=== PATIENT | female | born 1955 | race Caucasian/White ===

== ENCOUNTER → 2018-02-16 09:54 | Outpatient (CLI) | payer MEDICARE, SELFPAY, OTHER ==
[2018-02-16 11:59] LABS: Hemoglobin 13.4 g/dL (12.0-16.0); Mean Corpuscular HGB Conc 34.4 % (30-36); Mean Corpuscular Hemoglobin 31.4 PG (26-34); Mean Corpuscular Volume 91.4 fL (80-100); Platelet Count 278 X10^3/uL (150-400); Red Blood Cell Count 4.27 X10^6/uL (4.0-5.2); Red Cell Distribution Width 13.6 % (11.6-14.8); White Blood Cell Count 7.7 X10^3/uL (4.5-11.0)
[2018-02-16 12:19] LABS: BUN Creatinine Ratio 22.9 (6-22); Blood Urea Nitrogen 16 mg/dL (7-17); Calcium 9.5 mg/dL (8.4-10.2); Carbon Dioxide 27 mmol/L (22-32); Chloride 97 mmol/L (98-107); Estimated Glomerular Filt Rate > 60.0 mL/min (>60); Glucose 91 mg/dL (80-110); HEMOLYSIS < 15 (0-50); Potassium 4.4 mmol/L (3.4-5.1); Sodium 137 mmol/L (137-145)
== END ==
PROVIDERS: PCP Physician Assistant; Visit Provider Orthopaedic Surgery Orthopaedic Surgery of the Spine
DX: Z01.818 Encounter for other preprocedural examination (principal)
CPT/HCPCS: 36415; 80048; 85027

== ENCOUNTER 2018-03-03 06:32 | Inpatient (IN) | payer MEDICARE, OTHER, SELFPAY ==
[2018-03-03] VITALS (16 sets, daily range): BP systolic 117–171; BP diastolic 72–97; PULSE 76–103; RESP 9–24; TEMP 36–37.1; O2SAT 93–98; BMI 22.5
[2018-03-03] MEDS: LACTATED RINGERS 1,000 ML 42 ML IV ×3 (07:54→11:37)
[2018-03-03] MEDS: MIDAZOLAM 2 MG/2 ML VIAL IV (07:57)
--- NOTE | 2018-03-03 08:02 | PM.PREOP ---
Pre-operative Note Interval Note Pre-op Check: History & Physical Reviewed by Physician, Exam Performed and History & Physical exam performed today
[2018-03-03] MEDS: CEFAZOLIN 2 GM/100 ML FROZ.PIGGY IV ×3 (08:06→23:44)
--- NOTE | 2018-03-03 08:45 | SUR.OPER ---
Right lateral on padded OR table. Head on pillow, gel axillary roll, pillow to support left arm. Legs flexed, pillows between legs, gel pad under down leg and ankle. Multiple passes of 3 inch cloth tape across shoulder, hip, upper and lower legs to secure patient on OR table.
[2018-03-03] MEDS: BUPIVACAINE LIPOSOME 266 MG/20 ML VIAL INJ (09:05)
[2018-03-03] MEDS: BUPIVACAINE 0.25% W/ EPI 50 ML VIAL INJ (09:05)
--- NOTE | 2018-03-03 09:58 | SUR.OPER ---
Prone on spine table, head in foam head support, padded chest and pelvic supports, gel pad at knees, lower legs supported by pillows; nipples, genitalia and toes free of pressure, arms secured on foam padded arm boards at <90 degrees abduction. Tape over blanket at thigh secured to table.
--- NOTE | 2018-03-03 10:00 | SUR.OPER ---
PATIENT WAS POSITIONED ACCORDING TO LAST ENTRY PRONE ON THE SPINE TABLE , OTHER ENTRY WAS CLICKED ON IN ERROR AND IS INCORRECT. STONEY DUONG
[2018-03-03] MEDS: LORazepam 2 MG/ML SYRINGE 0.5 MG IV ×2 (11:45→11:58)
[2018-03-03] MEDS: fentaNYL 100 MCG/2 ML INJ 25 MCG IV ×2 (11:47→11:53)
[2018-03-03] MEDS: hydrOXYzine 50 MG/ML INJ 25 MG IM (11:50)
--- NOTE | 2018-03-03 11:50 | P.OP_ITS ---
Operative Date/Time/Diagnoses - Date of procedure: 03/03/18 Time of procedure: 08:19 Pre-op diagnosis: 1. L4-5, L5-S1 spondylolisthesis 2. L4-5, L5-S1 spinal stenosis 3. L4-5, L5-S1 spondylosis with radiculopathy Post-op diagnosis: same Procedure & Clinicians Procedure: 1. L4-5, L5-S1 Postero-lateral and posterior interbody fusion 2. L4-5, L5-S1 interbody cage placement. 3. L4-5, L5-S1 decompressive laminectomy with bilateral facetecomies 4. L4-5, L5-S1 Posterior segmental instrumentation 5. Preston of bone marrow from iliac crest 6. Utilization of microsurgical technique and operating microscope Same procedure as scheduled: Yes Indications: Patient has been having chronic back pain and worsening lumbar radiculopathy. Patient failed multiple conservative management with worsening pain weakness and numbness in her lower extremity. Patient has been having difficulty performing activity of daily living. After discussing risks benefits of treatment options, patient elected proceed with surgery. Surgeon: Talha Begum Electric Razor Assembler: Sophia Galloway Click Yes if Unassisted: No Anesthesia Type: General Operative Notes Closure Type: primary Specimen(s): none sent Implants & Drains: Globus Revolve screws and Caliber cage Applied: catheter Estimated Blood Loss (mL): 100 Blood products transfused: none Procedure in detail: Patient was seen in the preoperative area. Risks and benefits of the surgery was discussed with the patient. Informed consent was obtained from the patient and placed in the chart. Surgical site was marked. Patient was taken to the operative room. General anesthesia was administered. Prophylactic antibiotic was given to the patient less than 30 min before the incision was made. Patient was placed into a prone position on the Jason table. Patient's back was then prepped and draped in the sterile fashion. Time- out was performed at this time. Using AP and lateral C-arm imaging the interval between L4-S1 was identified and marked on patient's back. A 2 inch incision 2 in from midline was made on the left side first. The fascia was incised in line with skin incision. Globus MARS retractors was placed inside the incision and docked onto the L4 and L5 lamina. Using microsurgical technique and operating microscope, a L4 and L5 laminectomy and L4-5 L5-S1 facetectomy was performed using a Kerrison rongeur. The disc space at L4-5, L5-S1 was identified. And a total diskectomy was performed at L4-5, L5-S1 level. The endplates were decorticated using a rasp and shaver. The total diskectomy and decortication was performed at L4-5, L5- S1 level in order to to accomplish a L4-5, L5-S1 fusion. The local bone from the laminectomy and facetectomy was saved for local bone grafting. After the total diskectomy and decortication was completed, Globus viacell bone graft material was combined with local bone that was harvested earlier. At this time , a separate skin is incision was made over the iliac crest. A Jamshidi needle was inserted into the iliac crest through a separate skin incision. 5 cc of bone marrow aspiration was obtained through the separate skin incision using a Jamshidi needle from the iliac crest. The bone marrow aspiration was combined with local bone and the via cell bone grafting material. The bone grafting material was placed into the L4-5, L5-S1 interbody space along with two cages, one expandable cage at each level. The cages were expanded to their maximum height using the torque limiting screwdriver. At this time a mirror image incision was made on the right side. The fascia was incised in line with the skin incision. Globus MARS retractor was inserted and docked onto the L4-5, L5-S1 posterolateral gutter. Using the power drill, posterior-lateral decortication was performed at L4-5, L5-S1 level until bleeding cortical bone was identified. The remaining bone grafting material was placed into the L4-5 L5-S1 posterior lateral gutter he order to accomplish posterolateral fusion at the L4-5 L5-S1 levels. Using the double C-arm technique, pedicle screws were placed into the L4, L5, S1 pedicles bilaterally. This was done by placing the Jamshidi needle into the pedicles, then placing the guidewires over the Jamshidi needle, and finally placing the cannulated screws over the guidewires bilaterally. After the pedicle screws were placed, 2 titanium rods was locked into the heads of the pedicle screws using locking caps and torque limiting screwdriver. Total 6 pedicles screws were placed. After all the hardware was placed, and confirmed with AP and lateral C-arm imaging, the wound was then irrigated with sterile normal saline and packed with Ray-Linh gauze for 3 min to accomplish hemostasis. After the gauze was removed the deep fascia was closed with #1 Vicryl suture. The subcutaneous layer was closed with 2-0 Vicryl. The skin was closed with skin lorenzo. Patient tolerated the procedure well. There were no complications. Complications: none Condition: stable Disposition: PACU Plan for aftercare: Admit to inpatient hospital
[2018-03-03] MEDS: fentaNYL 100 MCG/2 ML INJ 50 MCG IV (11:57)
--- NOTE | 2018-03-03 12:16 | DI.RAD.S_ITS ---
PROCEDURE: XR LUMBAR SPINE 2-3V INDICATIONS: L4-5, L5-S1 TLIF TECHNIQUE: 2 views of the lumbar spine were acquired. COMPARISON: [facility], , L-SPINE WITHOUT CONTRAST, 10/20/2017, 8:23. FINDINGS: Bones: Postsurgical changes compatible with L4-L5 and L5-S1 transforaminal lumbar interbody fusion noted. Bilateral L3, L4 and L5 pedicle screws and posterior fusion rods as well as L4-L5 and L5-S1 disc spacers noted. The hardware is intact. There is normal bony alignment. No vertebral body compression fractures. No suspicious bony lesions. Soft tissues: Overlying bowel gas pattern is normal. No suspicious soft tissue calcifications. IMPRESSION: Expected postsurgical change for L4-S1TLIF. Dictated by: Antonietta Osorio MD, PhD on 03/03/2018 at 12:50 Approved by: Antonietta Osorio MD, PhD on 03/03/2018 at 12:52
[2018-03-03] MEDS: MORPHINE 2 MG/ML INJ IV (14:16)
[2018-03-03] MEDS: SODIUM CHLORIDE 0.9% 1,000 ML 100 ML IV (14:17)
[2018-03-03] MEDS: OXYCODONE IR 5 MG TABLET 10 MG PO ×4 (14:31→23:44)
[2018-03-03] MEDS: hydrOXYzine pamoate 25 MG CAPSULE PO ×2 (17:20→21:09)
[2018-03-03] MEDS: OXYCODONE ER 10 MG TAB PO (21:03)
[2018-03-03] MEDS: CITALOPRAM 20 MG TABLET 40 MG PO (21:06)
[2018-03-03] MEDS: SENNOSIDES 8.6 MG TABLET 17.2 MG PO (21:07)
[2018-03-03] MEDS: DOCUSATE 100 MG CAPSULE PO (21:07)
[2018-03-03] MEDS: CALCIUM CARBONATE 600 MG TABLET PO (21:07)
[2018-03-04] VITALS (15 sets, daily range): BP systolic 119–156; BP diastolic 59–88; PULSE 80–86; RESP 16; TEMP 36.8–38.6; O2SAT 93–98
[2018-03-04] MEDS: SODIUM CHLORIDE 0.9% 1,000 ML 100 ML IV (00:52)
[2018-03-04] MEDS: hydrOXYzine pamoate 25 MG CAPSULE PO ×4 (00:52→18:55)
--- NOTE | 2018-03-04 01:03 | PC.NURSE ---
Addendum entered by Shayy Hall R.N. 03/04/18 06:56: Pain now 6-7 /10 , she states that Morphine was helpful in reducing major pain, still hurts when she moves. Slept for past 45 minutes. Original Note: Addendum entered by Shayy Hall R.N. 03/04/18 05:57: Medicated with 10 mg percolone at 0600 for pain 7/10, continues i side lying position. Excellent PO intake, IV fluids stopped, saline locked PIV in left forearm. Overall, calmer, musculoskeletal tension has declined, no shakiness and she appears to be falling asleep. Original Note: Addendum entered by Shayy Hall R.N. 03/04/18 05:28: Medicated with 10 mg percolone at 0300, pain 7-9/10 w/ spasms, she prefers to keep legs semi flexed and supported by 1 pillow for maximum comfort. At 0530, pain out of control after she used bed guzman, onset of muscle tension in legs, shaking, pain rapidly up to 10/10; given morphine 2 mg IV followed by vistaril 25 mg and encouraged into a right side lying position. pain abated to 7-8/10 with Morphine. Original Note: Kerry was experiencing 10/10 pain at 2330, medicated with percolone 10 mg at 2340 w/ additional vistaril 25 mg at 0050. She was able to describe some some relief, tolerating PO fluids plus solids, moving self to reposition in bed, and using bed guzman. She expresses good understanding about outcomes and has extensive knowledge about pain medication, having depended on oxycodone for several years. SCD's i place, + CMS in lower extremities, she is eager to get out of bed and begin work with PT.
[2018-03-04] MEDS: OXYCODONE IR 5 MG TABLET 10 MG PO ×2 (02:52→05:47)
[2018-03-04] MEDS: MORPHINE 2 MG/ML INJ IV ×5 (05:18→21:58)
[2018-03-04 05:24] LABS: Hematocrit 35.7 % (36-46); Hemoglobin 12.1 g/dL (12.0-16.0)
[2018-03-04] MEDS: ACETAMINOPHEN 325 MG TABLET 650 MG PO ×3 (08:14→18:55)
[2018-03-04] MEDS: OXYCODONE ER 10 MG TAB PO ×2 (09:19→21:58)
[2018-03-04] MEDS: CALCIUM CARBONATE 600 MG TABLET PO ×2 (09:22→21:52)
[2018-03-04] MEDS: CYANOCOBALAMIN (VITAMIN B-12) 500 MCG TABLET PO (09:23)
[2018-03-04] MEDS: ESTRADIOL 1 MG TABLET PO (09:23)
[2018-03-04] MEDS: CHOLECALCIFEROL (VITAMIN D3) 1,000 UNIT TABLET 1000 UNIT PO (09:23)
[2018-03-04] MEDS: DOCUSATE 100 MG CAPSULE PO ×2 (09:23→21:52)
[2018-03-04] MEDS: LORATADINE 10 MG TABLET PO (09:24)
[2018-03-04] MEDS: MULTIVITAMIN 1 TABLET 1 TAB PO (09:24)
[2018-03-04] MEDS: OXYBUTYNIN 5 MG TABLET PO (09:24)
--- NOTE | 2018-03-04 10:07 | PT.IIE ---
Current Diagnoses Spondylolisthesis, lumbar region (03/03/18) Spondylolisthesis, lumbosacral region (03/03/18) Other spondylosis with radiculopathy, lumbar region (03/03/18) Spinal stenosis, lumbar region without neurogenic claudication (03/03/18) Surgery Performed Operation Date: 03/03/18 07:45 Actual Procedures p L4-5, L5-S1 Translaminar Interbody Fusion w/posterior instrumentation - Talha Begum MD Physical Therapy Inpatient Evaluation/Re-Eval M1 PT/OT-IP Prior Functional Status Start: 03/04/18 09:56 Freq: Status: Active Protocol: Document 03/04/18 09:56 [facility] (Rec: 03/04/18 10:07 [facility] [id number]) Medical Review Prior Functional Status Medical History Reviewed Yes Diet/Fluid Consistency Regular Mobility and Gait Modified indep. with occasional SPC and/or 4WW use. Activities of Daily Living and IADL's Indep. ADLs. Social History Household Members spouse Living Arrangements House Number of Floors (Floors) Two Floors Number of Stairs To Enter/Railing? Ramped entry, does not need access to second level at home . Home Environment High Toilet Walk in Shower Tub/Shower Ramp Home Equipment Four Wheel Walker Straight Cane Shower Seat without Backrest Hand Held Shower Grab Bars In Shower M2 PT-IP Current Condition Start: 03/04/18 09:56 Freq: Status: Active Protocol: Document 03/04/18 09:56 [facility] (Rec: 03/04/18 10:07 [facility] [id number]) Physical Therapy Current Condition Current Condition Evaluation Date 03/04/18 Treatment Diagnosis L4-5, L5-S1 TLIF 03/03/18, impaired mobility Precautions Lumbar Precautions Log Roll No Twisting Limit Bending Lifting Restriction of 10 lbs Gait Belt above Incisional Area M3 PT-IP Subjective Start: 03/04/18 09:56 Freq: Status: Active Protocol: Document 03/04/18 09:56 [facility] (Rec: 03/04/18 10:07 [facility] [id number]) Subjective Physical Therapy Visit Type Type Initial Evaluation Visit Start Time 09:30 Visit Stop Time 09:56 Total Visit Minutes 26 Notes Family in room during session. Number of ORGAN T[employer]ER [employer] Visits 0 Physical Therapy Visit Comments Patient/Caregiver Goals go home. Therapy Pain Assessment Pain When Pain Assessed At Rest Pain Present Pain Present Pain Reported Location lower back Intensity 2 Scale Used Numeric (1 - 10) Description Aching Pain Management Techniques Modification of Treatment Re-positioning Timing of Activity with Medications M4 PT-IP Mobility and Gait Start: 03/04/18 09:56 Freq: Status: Active Protocol: Document 03/04/18 09:56 [facility] (Rec: 03/04/18 10:07 [facility] [id number]) PT-Bed Mobility Assessment Rolling Type of Rolling Log Rolling Level of Assist Standby Assistance Supine to Sit Supine to Sit Standby Assistance Scooting Scooting to Edge of Bed Standby Assistance PT-Transfer Assessment Sit to and From Stand Sit to and from Stand Standby Assistance Use of Upper Extremities Equipment Transfer Assistive Device Gait Belt Front Wheeled Walker Transfers Transfer Destination Chair Transfer Technique Stand Step Pivot Transfer Ability Level of Assist Standby Assistance Comments Mobility Comments VC for no twisting, leg position for initiating stand to sit. Gait Assessment Gait Gait Assistance Required: Standby Assistance Distance (Feet) (feet) 50 Assistive Devices Assistive Device Gait Belt Front Wheeled Walker Gait Deviations General Gait Pattern Antalgic Factors Limiting Gait Function Factors Limiting Gait Function Decreased Activity Tolerance Decreased Strength Pain Comments Gait Comments Step-through gait patter, fatigued final 15 ft of gait, decreasing step length as fatiguing. PT-Balance Assessment Sitting Balance and Reactions Static Sitting Balance Ability Good Dynamic Sitting Balance Ability Good Standing Balance and Reactions Static Standing Balance Ability Good Dynamic Standing Balance Ability Fair Device Used FWW M5 PT-IP Objective Assessments Start: 03/04/18 09:56 Freq: Status: Active Protocol: Document 03/04/18 09:56 [facility] (Rec: 03/04/18 10:07 [facility] [id number]) Orientation Orientation/Cognition Level of Alertness Alert Language Function Ability No Deficits Noted Safety Awareness Understands Safety Issues Strength Lower Extremity Strength Assessment Bilaterally Impaired Hip flexion 4/5 B Knee flexion 4/5 R & 5/5 L, extension 5/5 B Ankle DF and GT ext 4+/5 R, 5/5 on L Coordination Assessment Gross Coordination Gross Coordination WNL Sensation Assessment Sensation Gross Sensation WNL Muscle Tone Muscle Tone WNL Yes M6 PT-IP Treatment Start: 03/04/18 09:56 Freq: Status: Active Protocol: Document 03/04/18 09:56 [facility] (Rec: 03/04/18 10:07 [facility] [id number]) Physical Therapy Treatment Education Education Provided Precautions Post-Op Packet Safety M7 PT-IP Assessment and Plan Start: 03/04/18 09:56 Freq: Status: Active Protocol: Document 03/04/18 09:56 [facility] (Rec: 03/04/18 10:07 [facility] [id number]) PT Summary Assessment and Plan Potential Rehabilitation Potential Excellent Status of Condition at Evaluation Evolving Summary Impairments Pain Strength Balance Gait Activity Tolerance Assessment Summary POD #1 L4-5, L5-S1 TLIF. Pt able to ambulate 50 ft with mild increase in pain and moderate fatigue. Family in room, appears to be very supportive and will be able to assist upon d/c. Pt SBA with all mobility at this time, will continue to progress toward goals. Pt only has a 4WW, may have to trial with 4WW prior to d/c to determine safety (i.e. posture, no stooping/forward lean with 4WW ). Expect pt to be able to d/c home when medically stable, with assistance. Goals Bed Mobility Goal Independent Transfer Goal Independent Gait Goal Independent Gait Distance 150 Days to Meet Goals 2 Frequency of Treatment Frequency Of Treatment Twice a Day Treatment Plan Physical Therapy Treatment Plan Bed Mobility Training Transfer Training Gait Training Discharge Planning Hot or Cold Pack Neuromuscular Re-ed Other Recommendations and Next Treatment progress gait, review Focus precautions, trial 4WW prior to d/c. Recommendations To Nursing Amount of Assist Needed 1 Person Assist Discharge Recommendations PT Discharge Recommendations Home with Assistance Equipment Needed for Home Before FWW if not tolerating 4WW (TBD Discharge ) Provider Visit Care Team Role Provider Type Cori Dorsey PA-C Primary Care Provider Physician Specialty: Internal Medicine Shawn Tang DPM Family Provider Physician Specialty: Podiatry Talha Begum MD Admit Provider Physician Attending Provider Specialty: Orthopedic Surgery
--- NOTE | 2018-03-04 11:48 | PM.PNPO.1 ---
Subjective Date Patient Seen: 03/04/18 Time Patient Seen: 11:48 Interval history: Patient's pain is [id number]. No fever chills. No nausea vomiting. No dysuria or frequency. No shortness of breath or chest pain. Patient did quit smoking 4 weeks ago. Exam Vital Signs (past 8 hours): Vital Signs - 8 hr 03/04/18 07:00 03/04/18 08:14 03/04/18 09:00 Temperature 100.2 F H 100.2 F H 100.2 F H Pulse Rate 85 Respiratory Rate 16 Blood Pressure 119/59 L Pulse Oximetry 93 Pulse Oximetry 93 Oxygen Delivery Method Room Air Oxygen Flow Rate 2 Narrative Exam Narrative: 62-year-old female resting comfortably in bed in no apparent distress. Lumbar dressing is clean, dry and intact. Neurovascular status is intact to the distal bilateral lower extremities. Objective Labs Result Diagrams: 03/04/18 05:10 Labs: Laboratory Results - last 24 hr 03/04/18 05:10 Hgb 12.1 Hct 35.7 L Assessment & Plan Post-op Postoperative Procedures Operation Date: 03/03/18 07:45 Actual Procedures Side Surgeon p L4-5, L5-S1 Translaminar Interbody Fusion w/posterior instrumentation Talha Begum MD temperature of a 100.2? this morning. I will order CBC and UA. Encourage incentive spirometer use. Mobilized with physical therapy. Likely discharge home in 1-2 days. Time Spent With Patient less than 15 minutes Quality VTE Deep Vein Thrombosis/Pulmonary Embolism Present on Admission: No
--- NOTE | 2018-03-04 11:51 | P.PN_ITS ---
Subjective Date Patient Seen: 03/04/18 Time Patient Seen: 11:48 Interval history: Patient's pain is [id number]. No fever chills. No nausea vomiting. No dysuria or frequency. No shortness of breath or chest pain. Patient did quit smoking 4 weeks ago. Exam Vital Signs (past 8 hours): Vital Signs - 8 hr 3 03/04/18 07:00 03/04/18 08:14 03/04/18 09:00 Temperature 100.2 F H 100.2 F H 100.2 F H Pulse Rate 85 Respiratory Rate 16 Blood Pressure 119/59 L Pulse Oximetry 93 Pulse Oximetry 93 Oxygen Delivery Method Room Air Oxygen Flow Rate 2 Narrative Exam Narrative: 62-year-old female resting comfortably in bed in no apparent distress. Lumbar dressing is clean, dry and intact. Neurovascular status is intact to the distal bilateral lower extremities. Objective Labs Result Diagrams: 03/04/18 05:10 Labs: Laboratory Results - last 24 hr 03/04/18 05:10 Hgb 12.1 Hct 35.7 L Assessment & Plan Post-op Postoperative Procedures Operation Date: 03/03/18 07:45 Actual Procedures Side Surgeon p L4-5, L5-S1 Translaminar Interbody Fusion w/posterior instrumentation Talha Begum MD temperature of a 100.2? this morning. I will order CBC and UA. Encourage incentive spirometer use. Mobilized with physical therapy. Likely discharge home in 1-2 days. Time Spent With Patient less than 15 minutes Quality VTE Deep Vein Thrombosis/Pulmonary Embolism Present on Admission: No
--- NOTE | 2018-03-04 11:58 | OT.IP.TRT ---
Current Diagnoses Spondylolisthesis, lumbar region (03/03/18) Spondylolisthesis, lumbosacral region (03/03/18) Other spondylosis with radiculopathy, lumbar region (03/03/18) Spinal stenosis, lumbar region without neurogenic claudication (03/03/18) Surgery Performed Operation Date: 03/03/18 07:45 Actual Procedures p L4-5, L5-S1 Translaminar Interbody Fusion w/posterior instrumentation - Talha Begum MD Occupational Therapy Treatment Note M2 OT-IP Current Condition Start: 03/04/18 11:41 Freq: Status: Active Protocol: Document 03/04/18 11:41 [facility] (Rec: 03/04/18 11:58 [facility] [id number]) Occupational Therapy Current Condition Current Condition Evaluation Date 03/04/18 Treatment Diagnosis Lumber spinal stenosis Post Operative Precautions Lumbar Precautions Log Roll No Twisting Limit Bending Lifting Restriction of 10 lbs Gait Belt above Incisional Area M3 OT- IP Subjective and Pain Start: 03/04/18 11:41 Freq: Status: Active Protocol: Document 03/04/18 11:41 [facility] (Rec: 03/04/18 11:58 [facility] [id number]) OT- Subjective Occupational Therapy Visit Type Type Treatment Note Visit Start Time 09:43 Visit Stop Time 10:23 Total Visit Minutes 40 Occupational Therapy Visit Comments Patient/Caregiver Goals To be able to go home with family to assist. OT Pain Assessment Pain When Pain Assessed During Mobility Pain Present Pain Present Pain Reported Location lower back Intensity 3 Scale Used Numeric (1 - 10) M4 OT- IP ADL's Start: 03/04/18 11:41 Freq: Status: Active Protocol: Document 03/04/18 11:41 [facility] (Rec: 03/04/18 11:58 [facility] [id number]) OT ADL-Grooming General Evaluation Grooming Ability Standby Assistance Areas Needing Assistance Retrieving/Set-up of Grooming Items OT ADL-Dressing General Eval Upper Body Dressing Ability Standby Assistance Lower Body Dressing Ability Maximum Assistance Areas Needing Assistance Underpants/Brief Socks Shoes Assistive Devices Dressing Assistive Devices Long Handled Shoe Horn Potato Loader Sock Aid Comments OT Dressing Comments After education of LB AED, pt now able to use sock aid to leanna/doff socks. OT ADL-Toileting Comments OT Toileting Comments Educated pt to stand for pericare needs, wipe can be helpful, and would benefit from wearing brief as pt usually goes to the bathroom at night 3 times daily. OT ADL-Bathing Comments OT Bathing Comments Not ready at this time. M6 OT- IP Functional Cognition Start: 03/04/18 11:41 Freq: Status: Active Protocol: Document 03/04/18 11:41 [facility] (Rec: 03/04/18 11:58 [facility] [id number]) Cognitive Factors Limiting Selfcare Function Cognitive Ability Level of Alertness Alert Patient Orientation Name Age Birthday Year Day of Week Place Situation Attention Span Ability Capable of Focused Attention Capable of Sustained Attention Ability to Follow Commands Able to Follow Multi-Step Commands Memory Description Immediate Intact Short Term Intact Safety Awareness Decreased Ability to Apply Precautions Problem Solving Ability Needs Assist to Identify Solutions Cognitive Comments Cognitive Assessment Comments Pt needing assist to incorporate back precautions for needs. Pt needs vc to slow down. OT- Vision and Hearing OT- Hearing Assessment OT- Hearing Assessment WFL M7 OT- IP Mobility and Balance Start: 03/04/18 11:41 Freq: Status: Active Protocol: Document 03/04/18 11:41 [facility] (Rec: 03/04/18 11:58 [facility] [id number]) OT- Bed Mobility Assessment Supine to Sit Supine to Sit Assist Standby Assistance OT-Transfer Assessment Sit to and From Stand Sit to and from Stand Standby Assistance Transfers Transfer Ability Standby Assistance Technique Transfer Destination Bed Chair Transfer Technique Stand Step Pivot Devices Transfer Assistive Devices Front Wheeled Walker Comments Mobility Comments SBA for bed mobility and transfer. OT- Balance Assessment Sitting Balance and Reactions Static Sitting Balance Ability Normal Dynamic Sitting Balance Ability Normal Standing Balance and Reactions Static Standing Balance Ability Good M8 OT- IP Objective Assessments Start: 03/04/18 11:41 Freq: Status: Active Protocol: Document 03/04/18 11:41 [facility] (Rec: 03/04/18 11:58 [facility] [id number]) OT Strength Comments Strength Comments BUE strength 4-/5. OT- Coordination Assessment Comments Coordination Comments Decreased coordination due to arthritis in hands and numbness in left hand per pt. Pt states drops items. Pt was to see a neurologist however not till later this summer. OT-Muscle Tone Assessment Muscle Tone WNL Yes OT Sensation Assessment Comments Summary Comments Numbness in left arm. M9 OT- IP Assessment and Plan Start: 03/04/18 11:41 Freq: Status: Active Protocol: Document 03/04/18 11:41 [facility] (Rec: 03/04/18 11:58 [facility] [id number]) OT Summary Assessment and Plan Potential Rehabilitation Potential Good Analytic Complexity at Evaluation Low Summary OT Impairments Functional Cognition Functional Mobility Dressing Toileting Bathing Toilet Transfers Shower Transfers Progress Towards Goals Progressing Toward Goals Assessment Summary Pt doing well so far, however not complaining of pain so much so far. Pt continues to need vc for back precautions and incorporate into ADL and functional mobility needs and will benefit from assist at home. Pt to assist at home . Goals Grooming Goal Independent Dressing Goal Standby Assistance Toileting Goal Standby Assistance Bathing Goal Contact Guard Assistance Toilet Transfer Goal Independent Shower Transfer Goal Standby Assistance Patient/Caregiver Education Goal Caregiver Independent Assisting Patient Days to Meet Goals 4 Frequency of Treatment Frequency Of Treatment Once a Day Treatment Plan OT Treatment Plan ADL Training Functional Mobility Patient/Family Education Discharge Planning Other Treatment Recommendations and Next Showering, continue to Treatment Focus practice AED for LB dressing, and family training. Discharge Recommendations OT Discharge Recommendations Home with Assistance Home Equipment Needs May need FWW.
--- NOTE | 2018-03-04 12:42 | OT.IP.EVAL ---
Current Diagnoses Spondylolisthesis, lumbar region (03/03/18) Spondylolisthesis, lumbosacral region (03/03/18) Other spondylosis with radiculopathy, lumbar region (03/03/18) Spinal stenosis, lumbar region without neurogenic claudication (03/03/18) Surgery Performed Operation Date: 03/03/18 07:45 Actual Procedures p L4-5, L5-S1 Translaminar Interbody Fusion w/posterior instrumentation - Talha Begum MD Occupational Therapy Inpatient Evaluation/Re-Eval M1 PT/OT-IP Prior Functional Status Start: 03/04/18 09:56 Freq: Status: Active Protocol: Document 03/04/18 09:56 [facility] (Rec: 03/04/18 10:07 [facility] [id number]) Medical Review Prior Functional Status Medical History Reviewed Yes Diet/Fluid Consistency Regular Mobility and Gait Modified indep. with occasional SPC and/or 4WW use. Activities of Daily Living and IADL's Indep. ADLs. Social History Household Members spouse Living Arrangements House Number of Floors (Floors) Two Floors Number of Stairs To Enter/Railing? Ramped entry, does not need access to second level at home . Home Environment High Toilet Walk in Shower Tub/Shower Ramp Home Equipment Four Wheel Walker Straight Cane Shower Seat without Backrest Hand Held Shower Grab Bars In Shower M1 PT/OT-IP Prior Functional Status Start: 03/04/18 11:41 Freq: NEEDED Status: Active Protocol: Document 03/04/18 11:41 [facility] (Rec: 03/04/18 11:58 [facility] [id number]) Medical Review Prior Functional Status Medical History Reviewed Yes Diet/Fluid Consistency Regular Mobility and Gait Modified indep. with occasional SPC and/or 4WW use. Activities of Daily Living and IADL's Indep. ADLs. Social History Household Members spouse Living Arrangements House Number of Floors (Floors) Two Floors Number of Stairs To Enter/Railing? Ramped entry, does not need access to second level at home . Home Environment High Toilet Walk in Shower Tub/Shower Ramp Home Equipment Four Wheel Walker Straight Cane Shower Seat without Backrest Hand Held Shower Grab Bars In Shower M2 OT-IP Current Condition Start: 03/04/18 11:41 Freq: Status: Active Protocol: Document 03/04/18 11:41 [facility] (Rec: 03/04/18 11:58 [facility] [id number]) Occupational Therapy Current Condition Current Condition Evaluation Date 03/04/18 Treatment Diagnosis Lumber spinal stenosis Post Operative Precautions Lumbar Precautions Log Roll No Twisting Limit Bending Lifting Restriction of 10 lbs Gait Belt above Incisional Area M3 OT- IP Subjective and Pain Start: 03/04/18 11:41 Freq: Status: Active Protocol: Document 03/04/18 11:41 [facility] (Rec: 03/04/18 11:58 [facility] [id number]) OT- Subjective Occupational Therapy Visit Type Type Initial Evaluation Visit Start Time 09:43 Visit Stop Time 10:23 Total Visit Minutes 40 Occupational Therapy Visit Comments Patient/Caregiver Goals To be able to go home with family to assist. OT Pain Assessment Pain When Pain Assessed During Mobility Pain Present Pain Present Pain Reported Location lower back Intensity 3 Scale Used Numeric (1 - 10) M4 OT- IP ADL's Start: 03/04/18 11:41 Freq: Status: Active Protocol: Document 03/04/18 11:41 [facility] (Rec: 03/04/18 11:58 [facility] [id number]) OT ADL-Grooming General Evaluation Grooming Ability Standby Assistance Areas Needing Assistance Retrieving/Set-up of Grooming Items OT ADL-Dressing General Eval Upper Body Dressing Ability Standby Assistance Lower Body Dressing Ability Maximum Assistance Areas Needing Assistance Underpants/Brief Socks Shoes Assistive Devices Dressing Assistive Devices Long Handled Shoe Horn Barrel Brander Sock Aid Comments OT Dressing Comments After education of LB AED, pt now able to use sock aid to leanna/doff socks. OT ADL-Toileting Comments OT Toileting Comments Educated pt to stand for pericare needs, wipe can be helpful, and would benefit from wearing brief as pt usually goes to the bathroom at night 3 times daily. OT ADL-Bathing Comments OT Bathing Comments Not ready at this time. M6 OT- IP Functional Cognition Start: 03/04/18 11:41 Freq: Status: Active Protocol: Document 03/04/18 11:41 [facility] (Rec: 03/04/18 11:58 [facility] [id number]) Cognitive Factors Limiting Selfcare Function Cognitive Ability Level of Alertness Alert Patient Orientation Name Age Birthday Year Day of Week Place Situation Attention Span Ability Capable of Focused Attention Capable of Sustained Attention Ability to Follow Commands Able to Follow Multi-Step Commands Memory Description Immediate Intact Short Term Intact Safety Awareness Decreased Ability to Apply Precautions Problem Solving Ability Needs Assist to Identify Solutions Cognitive Comments Cognitive Assessment Comments Pt needing assist to incorporate back precautions for needs. Pt needs vc to slow down. OT- Vision and Hearing OT- Hearing Assessment OT- Hearing Assessment WFL M7 OT- IP Mobility and Balance Start: 03/04/18 11:41 Freq: Status: Active Protocol: Document 03/04/18 11:41 [facility] (Rec: 03/04/18 11:58 [facility] [id number]) OT- Bed Mobility Assessment Supine to Sit Supine to Sit Assist Standby Assistance OT-Transfer Assessment Sit to and From Stand Sit to and from Stand Standby Assistance Transfers Transfer Ability Standby Assistance Technique Transfer Destination Bed Chair Transfer Technique Stand Step Pivot Devices Transfer Assistive Devices Front Wheeled Walker Comments Mobility Comments SBA for bed mobility and transfer. OT- Balance Assessment Sitting Balance and Reactions Static Sitting Balance Ability Normal Dynamic Sitting Balance Ability Normal Standing Balance and Reactions Static Standing Balance Ability Good M8 OT- IP Objective Assessments Start: 03/04/18 11:41 Freq: Status: Active Protocol: Document 03/04/18 11:41 [facility] (Rec: 03/04/18 11:58 [facility] [id number]) OT Strength Comments Strength Comments BUE strength 4-/5. OT- Coordination Assessment Comments Coordination Comments Decreased coordination due to arthritis in hands and numbness in left hand per pt. Pt states drops items. Pt was to see a neurologist however not till later this summer. OT-Muscle Tone Assessment Muscle Tone WNL Yes OT Sensation Assessment Comments Summary Comments Numbness in left arm. M9 OT- IP Assessment and Plan Start: 03/04/18 11:41 Freq: Status: Active Protocol: Document 03/04/18 11:41 [facility] (Rec: 03/04/18 11:58 [facility] [id number]) OT Summary Assessment and Plan Potential Rehabilitation Potential Good Analytic Complexity at Evaluation Low Summary OT Impairments Functional Cognition Functional Mobility Dressing Toileting Bathing Toilet Transfers Shower Transfers Progress Towards Goals Progressing Toward Goals Assessment Summary Pt doing well so far, however not complaining of pain so much so far. Pt continues to need vc for back precautions and incorportae into ADL and functional mobility needs and will benefit from assist at home. Pt to assist at home . Goals Grooming Goal Independent Dressing Goal Standby Assistance Toileting Goal Standby Assistance Bathing Goal Contact Guard Assistance Toilet Transfer Goal Independent Shower Transfer Goal Standby Assistance Patient/Caregiver Education Goal Caregiver Independent Assisting Patient Days to Meet Goals 4 Frequency of Treatment Frequency Of Treatment Once a Day Treatment Plan OT Treatment Plan ADL Training Functional Mobility Patient/Family Education Discharge Planning Other Treatment Recommendations and Next Showering, continue to Treatment Focus practice AED for LB dressing, and family training. Discharge Recommendations OT Discharge Recommendations Home with Assistance Home Equipment Needs May need FWW.
[2018-03-04 13:47] LABS: Appearance Urine UA CLEAR; Bilirubin Urine UA NEGATIVE (NEGATIVE); Color Urine UA YELLOW; Glucose Urine UA NEGATIVE (Normal); Ketones Urine UA NEGATIVE (NEGATIVE); Leukocyte Esterase Urine UA NEGATIVE (NEGATIVE); Nitrite Urine UA Negative (Negative); Occult Blood Urine UA TRACE-INTACT (Negative); Protein Urine UA NEGATIVE (Negative); Urobilinogen Urine UA 0.2 E.U./dL (0.2); pH Urine UA 6.5 (4.5-8.0)
--- NOTE | 2018-03-04 14:00 | PT.IPTN ---
Current Diagnoses Spondylolisthesis, lumbar region (03/03/18) Spondylolisthesis, lumbosacral region (03/03/18) Other spondylosis with radiculopathy, lumbar region (03/03/18) Spinal stenosis, lumbar region without neurogenic claudication (03/03/18) Surgery Performed Operation Date: 03/03/18 07:45 Actual Procedures p L4-5, L5-S1 Translaminar Interbody Fusion w/posterior instrumentation - Talha Begum MD Physical Therapy Treatment Note M2 PT-IP Current Condition Start: 03/04/18 09:56 Freq: Status: Active Protocol: Document 03/04/18 09:56 [facility] (Rec: 03/04/18 10:07 [facility] [id number]) Physical Therapy Current Condition Current Condition Evaluation Date 03/04/18 Treatment Diagnosis L4-5, L5-S1 TLIF 03/03/18, impaired mobility Precautions Lumbar Precautions Log Roll No Twisting Limit Bending Lifting Restriction of 10 lbs Gait Belt above Incisional Area M3 PT-IP Subjective Start: 03/04/18 09:56 Freq: Status: Active Protocol: Document 03/04/18 14:00 [facility] (Rec: 03/04/18 15:33 [facility] [email or web address]) Subjective Physical Therapy Visit Type Type Treatment Note Visit Start Time 13:30 Visit Stop Time 14:00 Total Visit Minutes 30 Number of SUPERINTENDENT NONSELLING Visits 1 Physical Therapy Visit Comments Patient Comments Pt states she had some spasm in right leg. Therapy Pain Assessment Pain When Pain Assessed At Rest Pain Present Pain Present Pain Reported M4 PT-IP Mobility and Gait Start: 03/04/18 09:56 Freq: Status: Active Protocol: Document 03/04/18 14:00 [facility] (Rec: 03/04/18 15:33 [facility] [email or web address]) PT-Bed Mobility Assessment Rolling Type of Rolling Log Rolling Level of Assist Standby Assistance Supine to Sit Supine to Sit Standby Assistance Sit to Supine Sit to Supine Minimal Assistance 1 Person Assistance Scooting Scooting to Edge of Bed Standby Assistance PT-Transfer Assessment Sit to and From Stand Sit to and from Stand Standby Assistance Use of Upper Extremities Equipment Transfer Assistive Device Gait Belt Front Wheeled Walker Gait Assessment Gait Gait Assistance Required: Standby Assistance Distance (Feet) (feet) 100 Assistive Devices Assistive Device Gait Belt Front Wheeled Walker Gait Deviations General Gait Pattern Antalgic Factors Limiting Gait Function Factors Limiting Gait Function Decreased Activity Tolerance Decreased Strength Pain M5 PT-IP Objective Assessments Start: 03/04/18 09:56 Freq: Status: Active Protocol: Document 03/04/18 09:56 [facility] (Rec: 03/04/18 10:07 [facility] [id number]) Orientation Orientation/Cognition Level of Alertness Alert Language Function Ability No Deficits Noted Safety Awareness Understands Safety Issues Strength Lower Extremity Strength Assessment Bilaterally Impaired Hip flexion 4/5 B Knee flexion 4/5 R & 5/5 L, extension 5/5 B Ankle DF and GT ext 4+/5 R, 5/5 on L Coordination Assessment Gross Coordination Gross Coordination WNL Sensation Assessment Sensation Gross Sensation WNL Muscle Tone Muscle Tone WNL Yes M6 PT-IP Treatment Start: 03/04/18 09:56 Freq: Status: Active Protocol: Document 03/04/18 14:00 [facility] (Rec: 03/04/18 15:33 [facility] [email or web address]) Physical Therapy Treatment Education Education Provided Precautions M7 PT-IP Assessment and Plan Start: 03/04/18 09:56 Freq: Status: Active Protocol: Document 03/04/18 14:00 [facility] (Rec: 03/04/18 15:33 [facility] [email or web address]) PT Summary Assessment and Plan Summary Assessment Summary Pt able increase gait distance . She did need assistance with LE for sit to supine. She had increase in pain at end of gait and with sit to supine. Frequency of Treatment Frequency Of Treatment Twice a Day Treatment Plan Other Recommendations and Next Treatment progress gait, review Focus precautions, trial 4WW prior to d/c. Recommendations To Nursing Amount of Assist Needed 1 Person Assist Discharge Recommendations PT Discharge Recommendations Home with Assistance Equipment Needed for Home Before FWW if not tolerating 4WW (TBD Discharge )
[2018-03-04 14:10] LABS: Add Manual Diff / Slide Review NO; Basophils Percent Auto 0.2 % (0-2); Eosinophils Percent Auto 0.1 % (2-4); Hematocrit 33.9 % (36-46); Hemoglobin 11.5 g/dL (12.0-16.0); Lymphocytes Percent Auto 12.6 % (25-40); Mean Corpuscular HGB Conc 33.8 % (30-36); Mean Corpuscular Volume 91.9 fL (80-100); Monocytes Percent Auto 13.2 % (3-14); Neutrophils Absolute Auto 10200 /uL (3000-5900); Neutrophils Percent Auto 73.9 % (50-75); Platelet Count 252 X10^3/uL (150-400); Red Blood Cell Count 3.69 X10^6/uL (4.0-5.2); Red Cell Distribution Width 13.1 % (11.6-14.8); White Blood Cell Count 13.8 X10^3/uL (4.5-11.0)
--- NOTE | 2018-03-04 15:35 | CM.DANOTE ---
DCP Assessment: Pt is a 62 yo female, resident of [place], [place]. Pt admitted for scheduled spinal surgery w/Dr Begum. Pt's PCP is Cori Dorsey; Insurance is Medicare/[facility]. Met w/pt, spouse Sung, dtr Cecelia and grand dtr at bedside, explained SW role. Pt expects to DC home when medically cleared. OT Willa in the rm and explains pt doing very well today, POD#1, SBA for all bed mobility and walking. Pt lives w/spouse, indp and active at her baseline. yoel Rai works remotely and available to assist once pt is home. Pt has Medicare d/t disability benefits, she requests information on two things; DPOA ppk and Medicaid application for help with Medicare premium. Pt/spouse have approx $2,600 in joint income. Encouraged dtr Cecelia to help mom/pt complete an application online through [employer]. Pt/Dtr appreciative for the information. No barriers identified to safe DC home w/family once medically cleared. Pt aware she will likely experience more pain POd#2 and #3. Following for any needs or concerns that might arise. Dai Nj, HEALTH SERVICES INFORMATION SPECIALIST
[2018-03-04] MEDS: CITALOPRAM 20 MG TABLET 40 MG PO (21:52)
[2018-03-04] MEDS: SENNOSIDES 8.6 MG TABLET 17.2 MG PO (21:53)
[2018-03-05] VITALS (8 sets, daily range): BP systolic 117–159; BP diastolic 62–81; PULSE 80–94; RESP 16–20; TEMP 37.1–38.1; O2SAT 93–97
[2018-03-05] MEDS: hydrOXYzine pamoate 25 MG CAPSULE PO ×5 (00:06→22:39)
[2018-03-05] MEDS: OXYCODONE IR 5 MG TABLET 10 MG PO ×6 (00:06→22:39)
[2018-03-05] MEDS: MORPHINE 2 MG/ML INJ IV (06:41)
[2018-03-05] MEDS: SODIUM CHLORIDE 0.9% FLUSH 10 ML IV ×3 (06:41→20:53)
[2018-03-05] MEDS: OXYCODONE ER 10 MG TAB PO ×2 (08:02→20:55)
[2018-03-05] MEDS: ESTRADIOL 1 MG TABLET PO (08:04)
[2018-03-05] MEDS: OXYBUTYNIN 5 MG TABLET PO (08:05)
[2018-03-05] MEDS: CYANOCOBALAMIN (VITAMIN B-12) 500 MCG TABLET PO (08:05)
[2018-03-05] MEDS: CALCIUM CARBONATE 600 MG TABLET PO ×2 (09:16→20:51)
[2018-03-05] MEDS: LORATADINE 10 MG TABLET PO (09:16)
[2018-03-05] MEDS: MULTIVITAMIN 1 TABLET 1 TAB PO (09:17)
[2018-03-05] MEDS: DOCUSATE 100 MG CAPSULE PO ×2 (09:17→20:51)
[2018-03-05] MEDS: CHOLECALCIFEROL (VITAMIN D3) 1,000 UNIT TABLET 1000 UNIT PO (09:17)
--- NOTE | 2018-03-05 10:53 | P.PN_ITS ---
Subjective Date Patient Seen: 03/05/18 Time Patient Seen: 10:51 Interval history: The patient is doing fairly well after surgery but is still having some difficulty with ambulation and leg pain. She denies any numbness. The pain is felt in her buttock and radiates down both legs. She is able to weight bear fully and has been up with physical therapy. She would like medication to better control her spasm. Exam Vital Signs (past 8 hours): Vital Signs - 8 hr 3 03/05/18 03:30 03/05/18 07:00 Temperature 99.7 F H 98.7 F Pulse Rate 89 83 Respiratory Rate 18 16 Blood Pressure 140/68 H 130/62 H Pulse Oximetry 96 96 Pulse Oximetry 96 Oxygen Delivery Method Room Air Oxygen Flow Rate 2 Narrative Exam Narrative: The patient is fully alert and oriented. Dressing is intact and dry. Sensation and strength is intact throughout the lower extremity. Objective Labs Result Diagrams: 03/04/18 14:00 Labs: Laboratory Results - last 24 hr 03/04/18 03/04/18 13:30 14:00 WBC 13.8 H RBC 3.69 L Hgb 11.5 L Hct 33.9 L MCV 91.9 MCH 31.0 MCHC 33.8 RDW 13.1 Plt Count 252 Neut % (Auto) 73.9 Lymph % (Auto) 12.6 L [place] % (Auto) 13.2 Eos % (Auto) 0.1 L Baso % (Auto) 0.2 Neut # (Auto) 38922 H Urine Color Yellow Urine Appearance Clear Urine pH 6.5 Ur Specific [place] 1.010 Urine Protein Negative Urine Glucose (UA) Negative Urine Ketones Negative Urine Occult Blood Trace-intact Urine Nitrate Negative Urine Bilirubin Negative Urine Urobilinogen 0.2 Ur Leukocyte Esterase Negative Assessment & Plan Post-op Postoperative Procedures Operation Date: 03/03/18 07:45 Actual Procedures Side Surgeon p L4-5, L5-S1 Translaminar Interbody Fusion w/posterior instrumentation Talha Begum MD Postoperative day: 2 Postoperative status: doing well Postoperative plan: routine post-op care and other (Will add Flexeril. Plan discharge tomorrow.) Time Spent With Patient less than 15 minutes Quality VTE Deep Vein Thrombosis/Pulmonary Embolism Present on Admission: No
--- NOTE | 2018-03-05 11:11 | PT.IPTN ---
Current Diagnoses Spondylolisthesis, lumbar region (03/03/18) Spondylolisthesis, lumbosacral region (03/03/18) Other spondylosis with radiculopathy, lumbar region (03/03/18) Spinal stenosis, lumbar region without neurogenic claudication (03/03/18) Surgery Performed Operation Date: 03/03/18 07:45 Actual Procedures p L4-5, L5-S1 Translaminar Interbody Fusion w/posterior instrumentation - Talha Begum MD Physical Therapy Treatment Note M2 PT-IP Current Condition Start: 03/04/18 09:56 Freq: Status: Active Protocol: Document 03/04/18 09:56 RCC (Rec: 03/04/18 10:07 RCC [id number]) Physical Therapy Current Condition Current Condition Evaluation Date 03/04/18 Treatment Diagnosis L4-5, L5-S1 TLIF 03/03/18, impaired mobility Precautions Lumbar Precautions Log Roll No Twisting Limit Bending Lifting Restriction of 10 lbs Gait Belt above Incisional Area M3 PT-IP Subjective Start: 03/04/18 09:56 Freq: Status: Active Protocol: Document 03/05/18 10:10 CLB (Rec: 03/05/18 11:11 CLB [id number]) Subjective Physical Therapy Visit Type Type Treatment Note Visit Start Time 10:10 Visit Stop Time 10:35 Total Visit Minutes 25 Number of METAL SORTER Visits 2 Physical Therapy Visit Comments Patient Comments Pt states she is having spasms in RLE>LLE. Therapy Pain Assessment Pain When Pain Assessed At Rest Pain Present Pain Present Pain Reported Location Bilateral Leg Pain Behaviors Facial Grimacing Holding Area Pain Management Techniques Apply Heat Elevation Re-positioning M4 PT-IP Mobility and Gait Start: 03/04/18 09:56 Freq: Status: Active Protocol: Document 03/05/18 10:10 CLB (Rec: 03/05/18 11:11 CLB [id number]) PT-Bed Mobility Assessment Rolling Type of Rolling Log Rolling Level of Assist Standby Assistance Supine to Sit Supine to Sit Standby Assistance Sit to Supine Sit to Supine Minimal Assistance 1 Person Assistance Scooting Scooting to Edge of Bed Standby Assistance PT-Transfer Assessment Sit to and From Stand Sit to and from Stand Standby Assistance Use of Upper Extremities Equipment Transfer Assistive Device Gait Belt Front Wheeled Walker Transfers Transfer Destination Bed Transfer Technique after walk Transfer Ability Level of Assist Standby Assistance Comments Mobility Comments Pt doing well with bed mobility and log roll. Gait Assessment Gait Gait Assistance Required: Standby Assistance Distance (Feet) (feet) 50 Assistive Devices Assistive Device Gait Belt Front Wheeled Walker Gait Deviations General Gait Pattern Antalgic Factors Limiting Gait Function Factors Limiting Gait Function Decreased Activity Tolerance Decreased Strength Pain M5 PT-IP Objective Assessments Start: 03/04/18 09:56 Freq: Status: Active Protocol: Document 03/04/18 09:56 RCC (Rec: 03/04/18 10:07 RCC [id number]) Orientation Orientation/Cognition Level of Alertness Alert Language Function Ability No Deficits Noted Safety Awareness Understands Safety Issues Strength Lower Extremity Strength Assessment Bilaterally Impaired Hip flexion 4/5 B Knee flexion 4/5 R & 5/5 L, extension 5/5 B Ankle DF and GT ext 4+/5 R, 5/5 on L Coordination Assessment Gross Coordination Gross Coordination WNL Sensation Assessment Sensation Gross Sensation WNL Muscle Tone Muscle Tone WNL Yes M6 PT-IP Treatment Start: 03/04/18 09:56 Freq: Status: Active Protocol: Document 03/04/18 14:00 GGD (Rec: 03/04/18 15:33 GGD [id number]) Physical Therapy Treatment Education Education Provided Precautions M7 PT-IP Assessment and Plan Start: 03/04/18 09:56 Freq: Status: Active Protocol: Document 03/05/18 10:10 CLB (Rec: 03/05/18 11:11 CLB [id number]) PT Summary Assessment and Plan Summary Assessment Summary Pt ambulated to counter where she brushed her teeth and hair SBA with minor cues for twisting. Pt ambulated 50ft before cramping in LE increased and pt wanted to go back to bed. Frequency of Treatment Frequency Of Treatment Twice a Day Treatment Plan Other Recommendations and Next Treatment progress gait, review Focus precautions, trial 4WW prior to d/c. Recommendations To Nursing Amount of Assist Needed 1 Person Assist Discharge Recommendations PT Discharge Recommendations Home with Assistance Equipment Needed for Home Before FWW if not tolerating 4WW (TBD Discharge )
[2018-03-05] MEDS: CYCLOBENZAPRINE 10 MG TABLET PO ×2 (11:43→20:51)
--- NOTE | 2018-03-05 14:35 | PT.IPTN ---
Current Diagnoses Spondylolisthesis, lumbar region (03/03/18) Spondylolisthesis, lumbosacral region (03/03/18) Other spondylosis with radiculopathy, lumbar region (03/03/18) Spinal stenosis, lumbar region without neurogenic claudication (03/03/18) Surgery Performed Operation Date: 03/03/18 07:45 Actual Procedures p L4-5, L5-S1 Translaminar Interbody Fusion w/posterior instrumentation - Talha Begum MD Physical Therapy Treatment Note M2 PT-IP Current Condition Start: 03/04/18 09:56 Freq: Status: Active Protocol: Document 03/04/18 09:56 RCC (Rec: 03/04/18 10:07 RCC [id number]) Physical Therapy Current Condition Current Condition Evaluation Date 03/04/18 Treatment Diagnosis L4-5, L5-S1 TLIF 03/03/18, impaired mobility Precautions Lumbar Precautions Log Roll No Twisting Limit Bending Lifting Restriction of 10 lbs Gait Belt above Incisional Area M3 PT-IP Subjective Start: 03/04/18 09:56 Freq: Status: Active Protocol: Document 03/05/18 13:58 CLB (Rec: 03/05/18 14:35 CLB [id number]) Subjective Physical Therapy Visit Type Type Treatment Note Visit Start Time 13:58 Visit Stop Time 14:15 Total Visit Minutes 17 Number of CORPORATE BANKING OFFICER Visits 3 Physical Therapy Visit Comments Patient Comments Pt stating she is feeling better with no cramping. Therapy Pain Assessment Pain When Pain Assessed During Mobility Pain Present Pain Present Pain Reported Location lower back Intensity 5 Scale Used Numeric (1 - 10) M4 PT-IP Mobility and Gait Start: 03/04/18 09:56 Freq: Status: Active Protocol: Document 03/05/18 13:58 CLB (Rec: 03/05/18 14:35 CLB [id number]) PT-Bed Mobility Assessment Rolling Type of Rolling Log Rolling Level of Assist Standby Assistance Supine to Sit Supine to Sit Standby Assistance Sit to Supine Sit to Supine Minimal Assistance 1 Person Assistance Scooting Scooting to Edge of Bed Standby Assistance PT-Transfer Assessment Sit to and From Stand Sit to and from Stand Standby Assistance Use of Upper Extremities Equipment Transfer Assistive Device Gait Belt Front Wheeled Walker Transfers Transfer Destination Bed Toilet Transfer Technique after walk Transfer Ability Level of Assist Standby Assistance Comments Mobility Comments Pt doing well with all bed mobility and transfers. Gait Assessment Gait Gait Assistance Required: Standby Assistance Distance (Feet) (feet) 140 Assistive Devices Assistive Device Gait Belt Front Wheeled Walker Factors Limiting Gait Function Factors Limiting Gait Function Decreased Activity Tolerance Decreased Strength Pain Comments Gait Comments Pt using step-through gait pattern with good posture and safety awareness. M5 PT-IP Objective Assessments Start: 03/04/18 09:56 Freq: Status: Active Protocol: Document 03/04/18 09:56 RCC (Rec: 03/04/18 10:07 RCC [id number]) Orientation Orientation/Cognition Level of Alertness Alert Language Function Ability No Deficits Noted Safety Awareness Understands Safety Issues Strength Lower Extremity Strength Assessment Bilaterally Impaired Hip flexion 4/5 B Knee flexion 4/5 R & 5/5 L, extension 5/5 B Ankle DF and GT ext 4+/5 R, 5/5 on L Coordination Assessment Gross Coordination Gross Coordination WNL Sensation Assessment Sensation Gross Sensation WNL Muscle Tone Muscle Tone WNL Yes M6 PT-IP Treatment Start: 03/04/18 09:56 Freq: Status: Active Protocol: Document 03/04/18 14:00 GGD (Rec: 03/04/18 15:33 GGD [email or web address]) Physical Therapy Treatment Education Education Provided Precautions M7 PT-IP Assessment and Plan Start: 03/04/18 09:56 Freq: Status: Active Protocol: Document 03/05/18 13:58 CLB (Rec: 03/05/18 14:35 CLB [id number]) PT Summary Assessment and Plan Potential Rehabilitation Potential Excellent Status of Condition at Evaluation Evolving Summary Assessment Summary Pt increased gait distance to ~140ft with slow step-through gait pattern and good safety awareness. Pt used toilet performing own pericare without twisting back. Over all pt is SBA with bed mobility, transfers and gait and can d/c home when medically stable. Goals Bed Mobility Goal Independent Transfer Goal Independent Gait Goal Independent Gait Distance 150 Frequency of Treatment Frequency Of Treatment Twice a Day Treatment Plan Other Recommendations and Next Treatment trial 4WW prior to d/c Focus Recommendations To Nursing Amount of Assist Needed 1 Person Assist Discharge Recommendations PT Discharge Recommendations Home with Assistance Equipment Needed for Home Before FWW if not tolerating 4WW (TBD Discharge )
--- NOTE | 2018-03-05 14:43 | PC.NURSE ---
Am shift Pt with continued muscle cramping at start of shift. Would like to consider another medication. Discussed with Dr Young, added Flexiril in hopes of pain control leveling out. 7/10 but feels most of this pain is cramping. Medicated and on reassessment, Pt resting comfortably. Allowed to sleep. 1415-After afternoon PT, Pt requests Oxycodone. Pain is rating 3/10, improved and pleased with progress.
--- NOTE | 2018-03-05 16:16 | PC.NURSE ---
1600- Pt assisted up to the chair. Pt using good body mechanics when mobilizing in bed. Pt states she is getting better pain relief with the addition of a muscle relaxer. Pt is using her incentive spirometry, lungs are clear to auscultation and room air saturation is 95% Ice applied to lower back for comfort. Dressing to lower back is reinforced and clean,dry and intact. Pt is requesting a dressing change tonight. Will monitor.
[2018-03-05] MEDS: CITALOPRAM 20 MG TABLET 40 MG PO (20:51)
[2018-03-05] MEDS: SENNOSIDES 8.6 MG TABLET 17.2 MG PO (20:52)
[2018-03-06] MEDS: MORPHINE 2 MG/ML INJ IV (01:12)
[2018-03-06] MEDS: SODIUM CHLORIDE 0.9% FLUSH 10 ML IV ×2 (01:14→10:43)
[2018-03-06] MEDS: OXYCODONE IR 5 MG TABLET 10 MG PO ×3 (03:06→10:42)
[2018-03-06] MEDS: hydrOXYzine pamoate 25 MG CAPSULE PO ×2 (03:07→08:25)
[2018-03-06 03:15] VITALS: BP 138/81; PULSE 81; RESP 18; TEMP 37.1; O2SAT 93
[2018-03-06] MEDS: CYCLOBENZAPRINE 10 MG TABLET PO (06:24)
[2018-03-06 07:10] VITALS: BP 120/66; PULSE 76; RESP 16; TEMP 36.8; O2SAT 97
--- NOTE | 2018-03-06 07:33 | P.DS_ITS ---
History of Present Illness Date Patient Seen: 03/06/18 Time Patient Seen: 07:28 Chief complaint: [id number] Narrative: Pain mild. No fever chills. No nausea vomiting. Patient states the combination of hydroxyzine and Flexeril is working well to manage her muscle spasms. Able to walk in the [place] yesterday with physical therapy. Patient is ready to be discharged home. Patient's and daughter are home to assist her. Discharge Providers Date of admission: 03/03/18 06:32 Primary care physician: Cori Dorsey PA-C Consults: 03/03/18 13:58 Consult to Occupational Therapy Evaluate & Treat Comment: Physician Instructions: Evaluate and treat Consult to Physical Therapy Evaluate & Treat Comment: Physician Instructions: Evaluate and Treat Discharge provider: Huang Sandoval PA-C Summary Discharge Diagnosis: Procedure: 1. L4-5, L5-S1 Postero-lateral and posterior interbody fusion 2. L4-5, L5-S1 interbody cage placement. 3. L4-5, L5-S1 decompressive laminectomy with bilateral facetecomies 4. L4-5, L5-S1 Posterior segmental instrumentation 5. [place] of bone marrow from iliac crest 6. Utilization of microsurgical technique and operating microscope Hospital Course: Indications: Patient has been having chronic back pain and worsening lumbar radiculopathy. Patient failed multiple conservative management with worsening pain weakness and numbness in her lower extremity. Patient has been having difficulty performing activity of daily living. After discussing risks benefits of treatment options, patient elected proceed with surgery. Patient admitted to the hospital for the above-mentioned procedures. Consents obtained. Patient taken to the operating room underwent above-mentioned procedure and back in her room recovering well and in stable condition. Patient received general anesthesia. Status at Discharge Functional status at discharge: uses cane/walker Overall status at discharge: patient is progressing back to baseline Time Spent with Patient Less than 30 minutes Exam Vital Signs (past 8 hours): Vital Signs - 8 hr 3 03/06/18 03:15 Temperature 98.7 F Pulse Rate 81 Respiratory Rate 18 Blood Pressure 138/81 H Pulse Oximetry 93 Pulse Oximetry 93 Oxygen Delivery Method Room Air Oxygen Flow Rate 0 Narrative Exam Narrative: 62-year-old female resting comfortably in bed in no apparent distress. Lumbar dressing is clean, dry and intact. Neurovascular status is intact to the distal bilateral lower extremities. Objective Labs Result Diagrams: 03/04/18 14:00 Discharge Plan Discharge Plan Patient Disposition: Home, Self-Care Discharge comment: Patient stable status post L4-L5, L5-S1 posterolateral and posterior interbody fusion. L4-L5-L5-S1 interbody cage placement, L4-L5-L5-S1 decompressive laminectomy with bilateral facetectomies, L4-L5, L5-S1 posterior segmental instrumentation Discharge Med Rec/Prescriptions Prescriptions: New cyclobenzaprine 10 mg Tablet 10 mg PO Q8HR PRN (Reason: Spasms) Qty: 30 RF: 0 hydroxyzine pamoate 25 mg Capsule 25 mg PO Q4HR PRN (Reason: Nausea And Vomiting) Qty: 30 RF: 0 oxycodone 5 mg tablet 5 mg PO Q4-6H PRN (Reason: pain) Qty: 60 RF: 0 cyclobenzaprine 5 mg tablet 5 mg PO TID Qty: 30 RF: 0 hydroxyzine pamoate [Vistaril] 25 mg capsule 25 mg PO Q6-8H PRN (Reason: spasms/nausea) Qty: 30 RF: 0 Continue sumatriptan succinate 100 mg Tablet 100 mg PO Q2-4H PRN (Reason: MIGRAINES) RF: 0 alendronate 70 mg Tablet 70 mg PO QWEEK RF: 0 citalopram 20 mg Tablet 40 mg PO BEDTIME RF: 0 estradiol 1 mg Tablet 1 mg PO QDAY RF: 0 oxybutynin chloride 5 mg Tablet 5 mg PO QDAY RF: 0 loratadine [Claritin] 10 mg Tablet 10 mg PO DAILY RF: 0 multivitamin Tablet 1 tab PO DAILY RF: 0 calcium carbonate [Calcium 600] 600 mg calcium (1,500 mg) Tablet 600 mg PO BID RF: 0 cholecalciferol (vitamin D3) [Vitamin D3] 1,000 unit Capsule 1,000 unit PO DAILY RF: 0 biotin 10,000 mcg Capsule 1 tab PO DAILY RF: 0 lactobacillus combination no.4 [Probiotic] 3 billion cell Capsule 3,000 mmu cells PO DAILY RF: 0 cyanocobalamin (vitamin B-12) [Vitamin B-12] 500 mcg Tablet 500 mcg PO DAILY RF: 0 Discontinued oxycodone-acetaminophen [Percocet] 5 MG/325 MG tablet 1 tab PO BID Qty: 0 RF: 0 meloxicam 15 mg Tablet 15 mg PO DAILY RF: 0 Follow up/Referrals: Talha Begum MD [Physician] - (Follow up in 10-14 days) Cori Dorsey PA-C [Primary Care Provider] - Provider Discharge Instructions Diet: Diet as Tolerated Activity: Limited bending, lifting, twisting Cold/Heat Therapy: Apply ice as needed Wound Care Report to your healthcare provider any signs of infection, such as:: chills, fever, increased pain and unusual drainage Discharge Data Primary Care Provider: Cori Dorsey Attending Provider: Talha Begum Admit Date/Time: 03/03/18 06:32 Quality VTE Deep Vein Thrombosis/Pulmonary Embolism Present on Admission: No
[2018-03-06] MEDS: MULTIVITAMIN 1 TABLET 1 TAB PO (08:24)
[2018-03-06] MEDS: ESTRADIOL 1 MG TABLET PO (08:24)
[2018-03-06] MEDS: OXYCODONE ER 10 MG TAB PO (08:24)
[2018-03-06] MEDS: LORATADINE 10 MG TABLET PO (08:25)
[2018-03-06] MEDS: CHOLECALCIFEROL (VITAMIN D3) 1,000 UNIT TABLET 1000 UNIT PO (08:25)
[2018-03-06] MEDS: CALCIUM CARBONATE 600 MG TABLET PO (08:25)
[2018-03-06] MEDS: DOCUSATE 100 MG CAPSULE PO (08:25)
[2018-03-06] MEDS: CYANOCOBALAMIN (VITAMIN B-12) 500 MCG TABLET PO (08:25)
[2018-03-06] MEDS: OXYBUTYNIN 5 MG TABLET PO (08:26)
--- NOTE | 2018-03-06 09:28 | PT.IPTN ---
Current Diagnoses Spondylolisthesis, lumbar region (03/03/18) Spondylolisthesis, lumbosacral region (03/03/18) Other spondylosis with radiculopathy, lumbar region (03/03/18) Spinal stenosis, lumbar region without neurogenic claudication (03/03/18) Surgery Performed Operation Date: 03/03/18 07:45 Actual Procedures p L4-5, L5-S1 Translaminar Interbody Fusion w/posterior instrumentation - Talha Begum MD Physical Therapy Treatment Note M2 PT-IP Current Condition Start: 03/04/18 09:56 Freq: Status: Active Protocol: Document 03/04/18 09:56 RCC (Rec: 03/04/18 10:07 RCC [id number]) Physical Therapy Current Condition Current Condition Evaluation Date 03/04/18 Treatment Diagnosis L4-5, L5-S1 TLIF 03/03/18, impaired mobility Precautions Lumbar Precautions Log Roll No Twisting Limit Bending Lifting Restriction of 10 lbs Gait Belt above Incisional Area M3 PT-IP Subjective Start: 03/04/18 09:56 Freq: Status: Active Protocol: Document 03/06/18 08:50 CLB (Rec: 03/06/18 09:28 CLB [id number]) Subjective Physical Therapy Visit Type Type Treatment Note Visit Start Time 08:50 Visit Stop Time 09:13 Total Visit Minutes 23 Number of CARBIDE TOOL MAKER Visits 4 Physical Therapy Visit Comments Patient Comments Pt stating she can move her legs without feeling like she is walking through mud. Therapy Pain Assessment Pain When Pain Assessed During Mobility Pain Present Pain Present Pain Reported Location lower back Intensity 2 Scale Used Numeric (1 - 10) M4 PT-IP Mobility and Gait Start: 03/04/18 09:56 Freq: Status: Active Protocol: Document 03/06/18 08:50 CLB (Rec: 03/06/18 09:28 CLB [id number]) PT-Bed Mobility Assessment Rolling Type of Rolling Log Rolling Supine to Sit Supine to Sit Standby Assistance Scooting Scooting to Edge of Bed Standby Assistance PT-Transfer Assessment Sit to and From Stand Sit to and from Stand Standby Assistance Use of Upper Extremities Equipment Transfer Assistive Device Gait Belt Front Wheeled Walker Transfers Transfer Destination Chair Toilet Transfer Ability Level of Assist Standby Assistance Comments Mobility Comments Pt doing well with all bed mobility and transfers. Pt recalls 3/3 precautions and is able to perform pericare using good form to prevent breaking back precautions. Gait Assessment Gait Gait Assistance Required: Standby Assistance Distance (Feet) (feet) 140 Assistive Devices Assistive Device Gait Belt 4 Wheeled Walker Factors Limiting Gait Function Factors Limiting Gait Function Decreased Activity Tolerance Decreased Strength Comments Gait Comments Pt using slow step-through gait pattern with good posture and safety awareness. Pt trialed 4WW successfully and has one for home use. M5 PT-IP Objective Assessments Start: 03/04/18 09:56 Freq: Status: Active Protocol: Document 03/04/18 09:56 RCC (Rec: 03/04/18 10:07 RCC [id number]) Orientation Orientation/Cognition Level of Alertness Alert Language Function Ability No Deficits Noted Safety Awareness Understands Safety Issues Strength Lower Extremity Strength Assessment Bilaterally Impaired Hip flexion 4/5 B Knee flexion 4/5 R & 5/5 L, extension 5/5 B Ankle DF and GT ext 4+/5 R, 5/5 on L Coordination Assessment Gross Coordination Gross Coordination WNL Sensation Assessment Sensation Gross Sensation WNL Muscle Tone Muscle Tone WNL Yes M6 PT-IP Treatment Start: 03/04/18 09:56 Freq: Status: Active Protocol: Document 03/04/18 14:00 GGD (Rec: 03/04/18 15:33 GGD [id number]) Physical Therapy Treatment Education Education Provided Precautions M7 PT-IP Assessment and Plan Start: 03/04/18 09:56 Freq: Status: Active Protocol: Document 03/06/18 08:50 CLB (Rec: 03/06/18 09:28 CLB [id number]) PT Summary Assessment and Plan Potential Rehabilitation Potential Excellent Status of Condition at Evaluation Evolving Summary Assessment Summary Pt doing well with all mobility and gait. Pt seems to be able to d/c when medically stable. Goals Bed Mobility Goal Independent Transfer Goal Independent Gait Goal Independent Gait Distance 150 Frequency of Treatment Frequency Of Treatment Twice a Day Treatment Plan Other Recommendations and Next Treatment Pt to d/c home Focus Recommendations To Nursing Amount of Assist Needed 1 Person Assist Discharge Recommendations PT Discharge Recommendations Home with Assistance Equipment Needed for Home Before Pt has 4WW Discharge
--- NOTE | 2018-03-06 09:36 | PT.IPNOTE ---
Acute Physical Therapy Discharge Note Patient has reached all of her established acute PT goals and all family training is complete, therefore, acute PT will sign off with the anticipation that pt will continue to mobilize with staff/family prior to discharge.
--- NOTE | 2018-03-06 11:02 | PC.NURSE ---
Addendum entered by Izabela Oconnor R.N. 03/06/18 12:25: DC- when spouse arrived, reviewed dc instructions and provided scripts to pt and spouse, belongings gathered, including cell phone and walking stick, tsf to and escorted to spouse's car. Original Note: AM NOTE - alert, states pain 2 on scale 0/10, has been having chr back pain and currently taking oxycontin bid and oxycodone, does have periodic muscle cramping discomfort, with breakfast given oxycontin 10mg and 25mg po vistaril, discussed constipation and oral narcotics, added prune juice 7 up, stool softener, declines any addl laxative, ra 97%, p75, Huang Felton PA in and pt to dc home, hep locked removed, showered, after shower placed covrsite dsg over stapled incisions, w/o drainage or redness. Later am, added 10mg po oxycodone.
--- NOTE | 2018-03-06 12:17 | OT.IP.TRT ---
Current Diagnoses Spondylolisthesis, lumbar region (03/03/18) Spondylolisthesis, lumbosacral region (03/03/18) Other spondylosis with radiculopathy, lumbar region (03/03/18) Spinal stenosis, lumbar region without neurogenic claudication (03/03/18) Surgery Performed Operation Date: 03/03/18 07:45 Actual Procedures p L4-5, L5-S1 Translaminar Interbody Fusion w/posterior instrumentation - Talha Begum MD Occupational Therapy Treatment Note M2 OT-IP Current Condition Start: 03/04/18 11:41 Freq: Status: Active Protocol: Document 03/06/18 12:01 ADH (Rec: 03/06/18 12:17 ADH [id number]) Occupational Therapy Current Condition Current Condition Evaluation Date 03/04/18 Treatment Diagnosis Lumber spinal stenosis Post Operative Precautions Lumbar Precautions Log Roll No Twisting Limit Bending Lifting Restriction of 10 lbs Gait Belt above Incisional Area Weight Bearing Status Weight Bearing Status Full Weight Bearing M3 OT- IP Subjective and Pain Start: 03/04/18 11:41 Freq: Status: Active Protocol: Document 03/06/18 12:01 ADH (Rec: 03/06/18 12:17 ADH [id number]) OT- Subjective Occupational Therapy Visit Type Type Treatment Note Visit Start Time 11:44 Visit Stop Time 12:01 Total Visit Minutes 17 Occupational Therapy Visit Comments Patient Comments Pt motivated to d/c home MARYANA OT Pain Assessment Pain When Pain Assessed During Mobility Pain Present Pain Present Denied Pain M4 OT- IP ADL's Start: 03/04/18 11:41 Freq: Status: Active Protocol: Document 03/06/18 12:01 ADH (Rec: 03/06/18 12:17 ADH [id number]) OT ADL-Dressing General Eval Lower Body Dressing Ability Contact Guard Assistance Comments OT Dressing Comments Requested A to doff socks d/t fatigue, reports she is able to do so independently with safekeeping clerk and/or ask family. OT ADL-Toileting General Evaluation Toileting Ability Independent Devices Toileting Assistive Devices Grab Bars M6 OT- IP Functional Cognition Start: 03/04/18 11:41 Freq: Status: Active Protocol: Document 03/04/18 11:41 CCC (Rec: 03/04/18 11:58 CCC [id number]) Cognitive Factors Limiting Selfcare Function Cognitive Ability Level of Alertness Alert Patient Orientation Name Age Birthday Year Day of Week Place Situation Attention Span Ability Capable of Focused Attention Capable of Sustained Attention Ability to Follow Commands Able to Follow Multi-Step Commands Memory Description Immediate Intact Short Term Intact Safety Awareness Decreased Ability to Apply Precautions Problem Solving Ability Needs Assist to Identify Solutions Cognitive Comments Cognitive Assessment Comments Pt needing assist to incorporate back precautions for needs. Pt needs vc to slow down. OT- Vision and Hearing OT- Hearing Assessment OT- Hearing Assessment WFL M7 OT- IP Mobility and Balance Start: 03/04/18 11:41 Freq: Status: Active Protocol: Document 03/06/18 12:01 ADH (Rec: 03/06/18 12:17 ADH [id number]) OT- Bed Mobility Assessment Rolling Type of Rolling Log Rolling Level of Assistance Standby Assistance Supine to Sit Supine to Sit Assist Standby Assistance Sit to Supine Sit to Supine Assist Standby Assistance Scooting Scooting to Edge of Bed Standby Assistance OT-Transfer Assessment Sit to and From Stand Sit to and from Stand Standby Assistance Transfers Transfer Ability Standby Assistance Technique Transfer Technique Stand Step Pivot Devices Transfer Assistive Devices Front Wheeled Walker OT- Gait Assessment Gait Gait Assistance Required: Standby Assistance Distance (Feet) (feet) 270 Assistive Devices Assistive Device Gait Belt Front Wheeled Walker M8 OT- IP Objective Assessments Start: 03/04/18 11:41 Freq: Status: Active Protocol: Document 03/04/18 11:41 [facility] (Rec: 03/04/18 11:58 [facility] [id number]) OT Strength Comments Strength Comments BUE strength 4-/5. OT- Coordination Assessment Comments Coordination Comments Decreased coordination due to arthritis in hands and numbness in left hand per pt. Pt states drops items. Pt was to see a neurologist however not till later this summer. OT-Muscle Tone Assessment Muscle Tone WNL Yes OT Sensation Assessment Comments Summary Comments Numbness in left arm. M9 OT- IP Assessment and Plan Start: 03/04/18 11:41 Freq: Status: Active Protocol: Document 03/06/18 12:01 ADH (Rec: 03/06/18 12:17 ADH [id number]) OT Summary Assessment and Plan Summary OT Impairments Functional Mobility Progress Towards Goals Progressing Toward Goals Safe For Discharge Goals Met Assessment Summary Pt demonstrating excellent progress with functional mobility and ADLs, able to use bathroom, manage clothing and hygiene, navigate doors all with FWW and SBA, increased time and cautious movements. Pt able to ambulate ~270 feet with FWW and SBA, no signs of fatigue or pain. Pt continues to move hesitatingly and slowly, but anticipate continued progress upon d/c. Based on today's session pt safe to d/c home with family support. Discharge Recommendations OT Discharge Recommendations Home with Assistance
== END 2018-03-06 12:25 | disposition home or self-care (01) | DRG 455 ==
PROVIDERS: Physician Assistant Medical; Admitting Provider Orthopaedic Surgery Orthopaedic Surgery of the Spine; Family Provider Podiatrist; PCP Physician Assistant; Visit Provider Orthopaedic Surgery Orthopaedic Surgery of the Spine
PROC: 0SG00AJ Fusion of Lumbar Vertebral Joint with Interbody Fusion Device, Posterior Approach, Anterior Column, Open Approach (ICD-10-PCS; principal; 2018-03-03 07:45)
DX: M48.061 Spinal stenosis, lumbar region without neurogenic claudication (principal); Z96.642 Presence of left artificial hip joint; J44.9 Chronic obstructive pulmonary disease, unspecified; Z87.891 Personal history of nicotine dependence; M47.26 Other spondylosis with radiculopathy, lumbar region; M47.27 Other spondylosis with radiculopathy, lumbosacral region; M48.07 Spinal stenosis, lumbosacral region; M43.17 Spondylolisthesis, lumbosacral region; M43.16 Spondylolisthesis, lumbar region; R50.9 Fever, unspecified
CPT/HCPCS: 36415; 72100; 76001; 81003; 85014; 85018; 85025; 97116; 97162; 97165; 97530; 97535; 99406; C1776; C9290; J0131; J0330; J0690; J1100; J2060; J2250; J2270; J2405; J2704; J3010; J3410

== ENCOUNTER → 2018-09-26 09:17 | Outpatient (CLI) | payer MEDICARE, OTHER, SELFPAY ==
[2018-03-03 14:33] VITALS: BMI 22.5
[2018-09-26 09:54] LABS: Add Manual Diff / Slide Review NO; Basophils Percent Auto 0.6 % (0-2); Eosinophils Percent Auto 1.1 % (2-4); Hematocrit 41.5 % (36-46); Hemoglobin 14.1 g/dL (12.0-16.0); Lymphocytes Percent Auto 18.2 % (25-40); Mean Corpuscular HGB Conc 33.9 % (30-36); Mean Corpuscular Hemoglobin 30.5 PG (26-34); Monocytes Percent Auto 7.3 % (3-14); Neutrophils Absolute Auto 5600 /uL (1500-7000); Neutrophils Percent Auto 72.8 % (50-75); Platelet Count 325 X10^3/uL (150-400); Red Blood Cell Count 4.61 X10^6/uL (4.0-5.2); Red Cell Distribution Width 13.5 % (11.6-14.8); White Blood Cell Count 7.7 X10^3/uL (4.5-11.0)
[2018-09-26 10:17] LABS: BUN Creatinine Ratio 22.5 (6-22); Blood Urea Nitrogen 18 mg/dL (7-17); Calcium 9.6 mg/dL (8.4-10.2); Carbon Dioxide 23 mmol/L (22-32); Chloride 101 mmol/L (98-107); Estimated Glomerular Filt Rate > 60.0 mL/min (>60); Glucose 98 mg/dL (80-110); HEMOLYSIS < 15 (0-50); Potassium 4.1 mmol/L (3.4-5.1); Sodium 135 mmol/L (137-145)
[2018-09-26 10:32] LABS: Appearance Urine UA CLEAR; Bilirubin Urine UA NEGATIVE (NEGATIVE); Color Urine UA YELLOW; Glucose Urine UA NEGATIVE (Negative); Ketones Urine UA NEGATIVE (NEGATIVE); Leukocyte Esterase Urine UA NEGATIVE (NEGATIVE); Nitrite Urine UA NEGATIVE (Negative); Occult Blood Urine UA 1+ (Negative); Protein Urine UA NEGATIVE (Negative); Urobilinogen Urine UA 0.2 E.U./dL (0.2); pH Urine UA 5.5 (4.5-8.0)
[2018-09-26 10:46] LABS: Hemoglobin A1C% w Est Avg Glu 5.7 % (4.0-6.0)
[2018-09-26 11:06] LABS: Bacteria Urine Few (2-10); Culture Indicated Urine Cult Not Indicated; Mucus Urine 1+ (Negative); RBC Urine 0-1/HPF (0-5/HPF); Squamous Epithelial Cell Urine 0-1 /HPF; WBC Urine 0-1/HPF (0-5/HPF)
== END ==
PROVIDERS: Family Provider Podiatrist; PCP Physician Assistant; Visit Provider Orthopaedic Surgery
DX: N39.9 Disorder of urinary system, unspecified (principal); Z13.1 Encounter for screening for diabetes mellitus; Z01.818 Encounter for other preprocedural examination; Z01.812 Encounter for preprocedural laboratory examination
CPT/HCPCS: 36415; 80048; 81001; 83036; 85025; 93005

== ENCOUNTER 2018-10-11 10:01 | Inpatient (IN) | payer MEDICARE, OTHER, SELFPAY ==
[2018-03-03 14:33] VITALS: BMI 22.5
[2018-10-05 11:02] VITALS: BMI 24.2
[2018-10-11] VITALS (15 sets, daily range): BP systolic 99–159; BP diastolic 52–107; PULSE 75–90; RESP 11–18; TEMP 36.4–37.3; O2SAT 95–98; BMI 24.2
--- NOTE | 2018-10-11 | DI.RAD.S_ITS ---
PROCEDURE: XR HIP RT 1V INDICATIONS: INTRA OPERATIVE RIGHT HIP TECHNIQUE: A single frontal view of the hips bilaterally were acquired, intraoperative in preparation for right total hip arthroplasty. COMPARISON: [facility], , [id number] W PEL IF PERFORMED, 04/08/2016, 12:49. FINDINGS: Bones: The prior left total hip arthroplasty is partially visualized and appears intact where well seen. Intraoperative devices are present in preparation for placement of the final components of the right total hip arthroplasty. Soft tissues: No suspicious soft tissue calcifications or masses. IMPRESSION: Excellent anatomic alignment established during preparation for placement of the spinal components for right total hip arthroplasty. Prior left total hip arthroplasty appears free of disruption. Dictated by: Conor Ahn M.D. on 10/11/2018 at 16:11 Approved by: Conor Ahn M.D. on 10/11/2018 at 16:12
--- NOTE | 2018-10-11 06:00 | DI.RAD.S_ITS ---
PROCEDURE: XR HIP W PEL IF DONE RT 2V INDICATIONS: TOTAL RIGHT HIP TECHNIQUE: AP pelvis and lateral view of the right hip acquired. COMPARISON: [facility], CR, [id number] W PEL IF PERFORMED, 04/08/2016, 12:49. FINDINGS: Bones: Patient is status post right hip arthroplasty, with hardware components in expected positions. The hip joint appears congruent. The visualized bony structures appear intact. Soft tissues: Overlying postoperative changes are noted. No suspicious soft tissue densities. IMPRESSION: Right total hip arthroplasty, normal alignment established. Prior left total hip arthroplasty remains normal in appearance. Dictated by: Conor Ahn M.D. on 10/11/2018 at 16:33 Approved by: Conor Ahn M.D. on 10/11/2018 at 16:34
[2018-10-11] MEDS: LACTATED RINGERS 1,000 ML 42 ML IV ×2 (10:34→13:13)
[2018-10-11] MEDS: VANCOMYCIN 1,000 MG/200 ML FROZ.PIGGY 200 MG IV (10:34)
[2018-10-11] MEDS: CELECOXIB 200 MG CAPSULE PO (10:36)
[2018-10-11] MEDS: PREGABALIN 75 MG CAPSULE PO (10:36)
[2018-10-11] MEDS: ACETAMINOPHEN 325 MG TABLET 975 MG PO ×2 (10:36→20:56)
--- NOTE | 2018-10-11 11:14 | PM.PREOP ---
Pre-operative Note Interval Note History & Physical reviewed/Exam performed by Physician: Yes Changes to H&P: Yes
--- NOTE | 2018-10-11 11:15 | PM.OP.1 ---
Operative Date/Time/Diagnoses Date of procedure: 10/11/18 Time of procedure: 11:58 Pre-op diagnosis: right hip OA Post-op diagnosis: same Procedure & Clinicians Procedure: Right total hip arthroplasty Same procedure as scheduled: Yes Indications: The patient has had progressively worsening right hip pain with radiographic changes consistent with arthritis. Non-operative management has failed and the patient has requested total hip replacement. The risks, benefits and alternatives to surgery were discussed with the patient prior to proceeding. Risks discussed included, but were not limited to, failure to relieve pain, leg length discrepancy, dislocation, stiffness, infection, nerve damage, deep venous thrombosis, pulmonary embolism, stroke, coma, heart attack, permanent paralysis and , as well as the potential need for eventual revision of the prosthetic. Surgeon: Talya Fraga Inorganic Chemistry Professor: Huang Sandoval Anesthesia Type: General and Spinal Operative Notes Findings: Severe right hip osteoarthritis, good stability Closure Type: primary Specimen(s): none sent Implants & Drains: Fraga [employer] Nephew anthology standard offset size 4, 52 mm R3 cup, 36 by -3 Estimated Blood Loss (mL): 250 Blood products transfused: none Procedure in detail: The patient was brought to the operating room. Patient was carefully positioned in the supine position. Time-out was performed and antibiotics were given. Anesthesia was induced. She was positioned in the on the table in order to allow hyperextension of the hip. Bilateral lower extremities were prepped and draped in a standard sterile fashion. An anterior right hip incision was made 1 fingerbreadth lateral to the anterior superior iliac spine and extended distally towards the greater trochanter. Dissection was carried out through skin and subcutaneous tissues. The skin and subcutaneous tissues were carefully injected with Lidocaine with epi. Superficial hemostasis was achieved. The fascia over the tensor fascia cristina was defined and incised with a knife. Two Allis clamps were used to grasp the fascia. Tensor fascia cristina was retracted laterally. A gelpi retractor was placed. Dissection was carried out down along the neck. The circumflex vessels were carefully identified and cauterized with the Aqua Mantis. There was good visualization of the femoral neck. A Cobra was placed superior to the neck and the gluteus fibers were carefully stripped from that superior aspect of the capsule. A 2nd retractor was placed along the inferior aspect of the neck. The rectus insertion along the capsule was partially released. A 3rd retractor that was then gently placed over the rim of the acetabulum under the rectus. Capsule was carefully incised and released from the intertrochanteric line circumferentially superior to the mid sagittal line and inferiorly to the mid sagittal line until the lesser trochanter was palpable. A tag stitch was placed both in the superior and inferior limb of the capsular insertion. Along the acetabulum capsule was also released up to the mid sagittal 12:00 position. A portion of the labrum was resected. A saw was used to perform an osteotomy at the level of the intertrochanteric line and the junction of the superior femoral neck leaving approximately 1 finger breath of residual inferior neck above the lesser trochanter. A 2nd cut was made along the femoral neck at the base of the head and a napkin ring of neck was removed. Corkscrew was placed in the femoral head and the head was removed without difficulty. Retractors were then repositioned around the acetabulum. Residual labrum was resected and additional osteophytes were removed. A reamer that was 4 mm below the templated size was placed by hand in the acetabulum and it was reamed to centralize the acetabulum. It was then reamed up to 2 under the templated size and fluoroscopy was brought in to confirm the position of the reaming and depth of reaming. I reamed 1 under the anticipated size and touched the rim with line to line reaming. A trial cup was placed and noted that it was appropriately sized and fluoroscopy confirmed position and depth. The component was open and inserted without difficulty fluoroscopic imaging was used to confirm that the cup had been adequately seated and was well positioned. Neutral poly trial liner was placed. The cup was tested and noted to be stable. Attention was then directed to the femur. The femur was gently hyperextended additional capsular release was performed as needed in order to allow adequate visualization of the proximal femur with elevation of the femur. Patient was placed in a hyperextended slightly abducted position with maximum external rotation. Box osteotome was used to check for any residual neck as well as sclerotic bone along the trochanter. [place] pepper was placed in the femur. Additional broaching was performed. Canal finder was used to determine the alignment of the canal and position. Size 1 broach was placed. The canal was then appropriately broached up to the templated size as long as there was adequate stability of the broach and serial advancement of the broach without excessive impingement. Specific attention was directed at avoiding varus attempting to direct the distal aspect of the broach more anteriorly and avoiding excessive anteversion. Trial reduction showed acceptable range of motion, good stability, no posterior impingement, caodaism of leg length and appropriate lateral shuck. I also hyperflexed the hip and checked that there was no impingement anteriorly and there was good stability with flexion, abduction and internal rotation. Final neutral poly was placed without difficulty. Marcaine and Exparel were injected.. The stem was placed without difficulty. Repeat trial reduction and x-ray showed acceptable overall position, length, and no evidence of the femoral fracture. Final head was placed. Wound was meticulously irrigated with normal saline. The hip was reduced and additional Exparel and Marcaine were injected. The capsule was closed with interrupted nonabsorbable sutures. The fascia of the tensor was closed with interrupted and running Vicryl. No drain was placed. Any tensor fascia cristina muscle that appeared to be contused or injured which was a minimal amount was carefully resected. Capsule around the tensor was injected with Exparel and Marcaine. The skin was closed with barbed stitches for the subcutaneous tissue and skin. We also used surgical glue. The wound was dressed sterilely. Brief Betadine soak was also used and was meticulously irrigated with normal saline. Patient was transferred to recovery room in satisfactory condition. Complications: none Condition: stable Disposition: Acute Care Plan for aftercare: The patient will be maintained on a standard total hip replacement protocol with weight bearing as tolerated and anterior hip precautions. The patient will receive Aspirin and sequential compression devices for DVT prophylaxis. The patient will be discharged home when safe for the home environment.
[2018-10-11] MEDS: CEFAZOLIN 2 GM/100 ML FROZ.PIGGY IV ×2 (12:10→20:56)
[2018-10-11] MEDS: TRANEXAMIC ACID 1,000 MG VIAL 1000 MG INJ ×2 (12:30→14:52)
--- NOTE | 2018-10-11 12:44 | SUR.OPER ---
Supine, head on pillow, torso on pink pad positioner. Iliac crest at flex of foot end of table. Gel roll under operative hip. Both arms secured on arm boards <90 degrees abduction. Tape over blanket to torso to bed. Both legs under control of surgeon and PAs.
[2018-10-11] MEDS: LIDOCAINE 1% W/EPI INJ 20 ML INJ (12:53)
[2018-10-11] MEDS: BUPIVACAINE LIPOSOME 266 MG/20 ML VIAL INJ (12:54)
[2018-10-11] MEDS: BUPIVACAINE 0.25% W/ EPI VIAL 60 ML INJ (12:54)
[2018-10-11] MEDS: fentaNYL 100 MCG/2 ML INJ 50 MCG IV (16:25)
--- NOTE | 2018-10-11 17:17 | PC.NURSE ---
Monika shift note: Patient is awake, alert, calm and pleasant. Admit to room 212 from PACU with RN. No c/o pain or discomfort. No nausea or vomiting. Tolerating PO intake. CMS intact to RLE. SCD in place. Oriented to room, environment and plan of care. Call light within reach.
[2018-10-11] MEDS: LACTATED RINGERS 1,000 ML 125 ML IV (17:51)
[2018-10-11] MEDS: LORATADINE 10 MG TABLET PO (20:55)
[2018-10-11] MEDS: CHOLECALCIFEROL (VITAMIN D3) 1,000 UNIT TABLET 2000 UNIT PO (20:55)
[2018-10-11] MEDS: CITALOPRAM 20 MG TABLET 40 MG PO (20:55)
[2018-10-11] MEDS: MULTIVITAMIN 1 TABLET 1 TAB PO (20:55)
[2018-10-11] MEDS: OXYBUTYNIN 5 MG TABLET PO (20:55)
[2018-10-11] MEDS: DOCUSATE 100 MG CAPSULE PO (20:55)
[2018-10-11] MEDS: ASPIRIN EC 81 MG TABLET PO (20:55)
[2018-10-12] VITALS: BP 121/74; PULSE 68; RESP 18; TEMP 36.7; O2SAT 98
[2018-10-12] MEDS: hydrOXYzine pamoate 25 MG CAPSULE PO ×3 (01:55→12:10)
[2018-10-12] MEDS: OXYCODONE IR 5 MG TABLET PO ×3 (01:55→12:09)
[2018-10-12] MEDS: CEFAZOLIN 2 GM/100 ML FROZ.PIGGY IV (03:59)
[2018-10-12] MEDS: LACTATED RINGERS 1,000 ML 125 ML IV (04:01)
[2018-10-12 04:10] VITALS: BP 134/78; PULSE 75; RESP 18; TEMP 36.9; O2SAT 100
[2018-10-12 06:12] LABS: Hematocrit 30.6 % (36-46); Hemoglobin 10.4 g/dL (12.0-16.0)
--- NOTE | 2018-10-12 07:34 | PM.DS.1 ---
History of Present Illness Date Patient Seen: 10/12/18 Time Patient Seen: 07:30 Chief complaint: [id number] RIGHT TOTAL HIP ARTHROPLASTY Narrative: Patient is seen bedside status post right anterior total hip arthroplasty postop day 1. Patient is doing well, her pain is well controlled and she denies any chest pain shortness of breath or calf pain. She would like to go home today. Discharge Providers Date of admission: 10/11/18 10:01 Primary care physician: Cori Dorsey PA-C Consults: 10/11/18 06:00 Consult to Anesthesiology Routine Comment: Consulting Provider: Anesthesiologist Reason for consultation: Regional block for post operative pain control 10/11/18 16:56 Consult to Discharge Planning Routine Comment: Consult to Physical Therapy Evaluate & Treat Comment: Physician Instructions: post op SPARKLE protocol Consult to Respiratory Therapy Evaluate & Treat Comment: Physician Instructions: Evaluate and treat 10/11/18 17:13 Consult to Dietitian, Adult Routine Comment: Reason For Exam: assessed at high risk Discharge provider: Cherrie Rubio PA-C Discharge Date: 10/12/18 Summary Discharge Diagnosis: Right hip osteoarthritis Hospital Course: Patient was admitted to the hospital status post right anterior total hip arthroplasty with Dr. Fraga on 10/11/2018. Patient tolerated the procedure well with no major complications. She was transitioned to the acute care floor where she was placed on the standard replacement pathway and protocol. She was seen by Physical therapy who recommended that she be discharged home. Patient was stable and ready for discharge on 10/12/2018. Status at Discharge Cognitive/behavioral status at discharge: Alert and oriented x4 Functional status at discharge: uses cane/walker Overall status at discharge: patient is progressing back to baseline Time Spent with Patient Less than 30 minutes Exam Vital Signs (past 8 hours): - 10/12/18 00:00 10/12/18 04:10 Temperature 98.1 F 98.5 F Pulse Rate 68 75 Respiratory Rate 18 18 Blood Pressure 121/74 134/78 Pulse Oximetry 98 100 Oxygen Delivery Method Room Air Oxygen Flow Rate 0 Narrative Exam Narrative: Well-developed well-nourished no acute distress. Alert and oriented x3. Dressing on the anterior hip is clean dry and intact. Minimal swelling no erythema no edema. Bilateral lower extremities neurovascularly intact. Calves are soft and compressible. Objective Labs Result Diagrams: 10/12/18 05:39 Labs: Laboratory Results - last 24 hr 10/12/18 05:39 Hgb 10.4 L Hct 30.6 L Discharge Plan Discharge Plan Patient Disposition: Home Discharge comment: d/c after PT Discharge Med Rec/Prescriptions Prescriptions: New aspirin 81 mg Tablet,Delayed Release (Dr/Ec) 81 mg PO BID Qty: 0 RF: 0 docusate sodium 100 mg Capsule 100 mg PO BID Qty: 0 RF: 0 Continue sumatriptan succinate 100 mg Tablet 100 mg PO Q2-4H PRN (Reason: MIGRAINES) RF: 0 alendronate 70 mg Tablet 70 mg PO QWEEK RF: 0 citalopram 20 mg Tablet 40 mg PO BEDTIME RF: 0 estradiol 1 mg Tablet 1 mg PO QDAY RF: 0 oxybutynin chloride 5 mg Tablet 5 mg PO BEDTIME RF: 0 loratadine [Claritin] 10 mg Tablet 10 mg PO BEDTIME RF: 0 multivitamin Tablet 1 tab PO BEDTIME RF: 0 calcium carbonate [Calcium 600] 600 mg calcium (1,500 mg) Tablet 600 mg PO BID RF: 0 cholecalciferol (vitamin D3) [Vitamin D3] 1,000 unit Capsule 2,000 unit PO BEDTIME RF: 0 cyclobenzaprine 10 mg Tablet 10 mg PO Q8HR PRN (Reason: Spasms) Qty: 30 RF: 0 hydroxyzine pamoate 25 mg Capsule 25 mg PO Q4HR PRN (Reason: Nausea And Vomiting) Qty: 30 RF: 0 oxycodone 5 mg tablet 5 mg PO Q4-6H PRN (Reason: pain) Qty: 60 RF: 0 meloxicam 15 mg Tablet 15 mg PO BEDTIME RF: 0 Follow up/Referrals: oCri Dorsey PA-C [Primary Care Provider] - Provider Discharge Instructions Diet: Diet as Tolerated Activity: Weightbearing as tolerated, follow hip precautions, use walker until cleared by PT. Cold/Heat Therapy: Apply ice to surgical site 20 minutes at a time as needed for pain/swelling at least hourly while awake Skin/Wound/Dressing Care Report to your healthcare provider any signs of infection, such as:: chills, fever, night sweats, increased pain, unusual drainage and unusual redness Dressing: Keep dressing in place, may shower but no soaking. Visit Report/Discharge Packet Instructions: DI for Hip Replacement Visit Report Forms: Stroke Signs & Symptoms Discharge Data Primary Care Provider: Cori Dorsey Attending Provider: Talya Fraga Admit Date/Time: 10/11/18 10:01
--- NOTE | 2018-10-12 07:51 | PC.NURSE ---
Addendum entered by Izabela Oconnor R.N. 10/12/18 14:52: DC - At lunch, given 5mg oxycodone and 25mg vistaril for pain 2 on scale 0/10 at rest, phys therapy has cleared for dc home, hep lock dc'd and pt showered, dressed, reviewed dc instructions, scripts and f/u have been previously arranged thru [facility], belongings gathered, including cell phone, no religious activities director, tablet, glasses, cane, clothing, tsf to and pool table mechanic escorted to spouse's car. Original Note: AM NOTE - Alert, states r hip pain 7 on scale 0/10, requesting medication, given 5mg oxycodone and 25mg vistaril with crackers, aquacell dsg d,i with a few small spots old serosang withing margins, +cms, moving le easily, denies numbness, ra 97, hr 72, + bt, no nausea, passing flatus, aware constipation and narcotics and has laxatives at home.
[2018-10-12 07:52] VITALS: BP 120/73; PULSE 71; RESP 16; TEMP 37; O2SAT 100
[2018-10-12] MEDS: ACETAMINOPHEN 325 MG TABLET 975 MG PO (09:28)
[2018-10-12] MEDS: ASPIRIN EC 81 MG TABLET PO (09:31)
[2018-10-12] MEDS: DOCUSATE 100 MG CAPSULE PO (09:31)
[2018-10-12] MEDS: ESTRADIOL 1 MG TABLET PO (09:32)
--- NOTE | 2018-10-12 09:40 | PT.IIE ---
Current Diagnoses Unilateral primary osteoarthritis, right hip (10/11/18) Surgery Performed Operation Date: 10/11/18 12:00 Actual Procedures p Total Hip Arthroplasty/Anterior Approach(Right) - Talya Fraga MD Surgical History (Last Updated 10/05/18 @ 12:27 by Ludy Fenton RN) History of bunionectomy of left great toe (Acute) History of bunionectomy of right great toe (Acute ~2015) History of esophagogastroduodenoscopy (EGD) (Acute) History of laparotomy (Acute) History of lumbar spinal fusion (Acute 03/03/18) History of total left hip arthroplasty (Acute ~03/2016) Hx of cervical discectomy (Acute 09/02/16) Hx of umbilical hernia repair (Acute) Medical History (Last Updated 10/05/18 @ 12:27 by Ludy Fenton RN) Chronic back pain (Acute) Depression (Acute) GERD (gastroesophageal reflux disease) (Acute) H/O: hysterectomy (Acute) Migraines (Acute) Osteoporosis (Acute) Seasonal allergies (Acute) Physical Therapy Inpatient Evaluation/Re-Eval M1 PT/OT-IP Prior Functional Status Start: 10/12/18 12:35 Freq: NEEDED Status: Active Protocol: Document 10/12/18 09:40 AB (Rec: 10/12/18 13:06 AB [id number]) Medical Review Prior Functional Status Medical History Reviewed Yes Communication able to make needs known Mobility and Gait pt stated that she is modified independent with all mobilities and ambulation without AD but uses 4WW when she has to do chores at home and uses SPC for outdoor mobility. Social History Household Members spouse Living Arrangements House Number of Floors (Floors) Two Floors Number of Stairs To Enter/Railing? pt stays on main level of the house and has not steps to enter Home Environment Standard Height Toilet Walk in Shower Tub/Shower Home Equipment Four Wheel Walker Straight Cane Crutches Hand Held Shower Grab Bars Near Toilet Grab Bars In Shower Additional Social History Comment pt also has her son/daughter at home to assist her. pt plans to sleep on her lift chair for a few days upon d/c M2 PT-IP Current Condition Start: 10/12/18 12:35 Freq: NEEDED Status: Active Protocol: Document 10/12/18 09:40 AB (Rec: 10/12/18 13:06 AB [id number]) Physical Therapy Current Condition Current Condition Evaluation Date 10/12/18 Treatment Diagnosis s/p R SPARKLE anterior approach; difficulty in walking Onset Date 10/11/18 Precautions Anterior Hip Precautions No Hip Extension No Hip External Rotation Weight Bearing Status Weight Bearing Status Weight Bear as Tolerated M3 PT-IP Subjective Start: 10/12/18 12:35 Freq: NEEDED Status: Active Protocol: Document 10/12/18 09:40 AB (Rec: 10/12/18 13:06 AB [id number]) Subjective Physical Therapy Visit Type Type Initial Evaluation Visit Start Time 09:40 Visit Stop Time 10:28 Total Visit Minutes 48 Number of FLOOR MANAGER Visits 0 Physical Therapy Visit Comments Patient Comments pt agreeable to do PT Patient Goals to go home Therapy Pain Assessment Pain When Pain Assessed At Rest Pain Present Pain Present Pain Reported Location Right Hip Intensity 2 Scale Used Numeric (1 - 10) Pain Management Techniques Apply Cold Timing of Activity with Medications Bilateral Leg Scale Used Numeric (1 - 10) M4 PT-IP Mobility and Gait Start: 10/12/18 12:35 Freq: NEEDED Status: Active Protocol: Document 10/12/18 09:40 AB (Rec: 10/12/18 13:06 AB [id number]) PT-Bed Mobility Assessment Supine to Sit Supine to Sit Standby Assistance Sit to Supine Sit to Supine Standby Assistance Scooting Scooting to Edge of Bed Standby Assistance PT-Transfer Assessment Sit to and From Stand Sit to and from Stand Standby Assistance Equipment Transfer Assistive Device Bed Rail Front Wheeled Walker Orthotic/Prosthetic Devices or Brace: No Transfers Transfer Destination Toilet Transfer Technique pt ambulated to the toilet using FWW Transfer Ability Level of Assist Standby Assistance Comments Mobility Comments pt initially requires cues to maintain anterior hip precautions and pt easily distracted. educated on safety and focusing on task. pt able to maintain hip precautions better afterwards with just occasionally cues. educated spouse to cue pt when needed. assessed ambulation using FWW and pt completed in room ~ 30 ft SBA. pt has 4WW at home and completed ambulation using 4WW SBA in room ~ 40 ft. pt requested to use the toilet. pt ambulated to the toilet using 4WW SBA and cues. pt completed sit to stand from the toilet SBA and ambulated towards the sink using 4WW SBA . pt was able to maintain standing balance SBA while completing handwashing. pt agreed to do further ambulation in hallway. Gait Assessment Gait Gait Assistance Required: Standby Assistance Distance (Feet) 100 Able to Maintain Weight Bearing Status Yes During Gait Assistive Devices Assistive Device Gait Belt Front Wheeled Walker Orthotic/Prosthetic Devices or Brace: No Gait Deviations General Gait Pattern Decreased Stride Length Decreased Feet Clearance Factors Limiting Gait Function Factors Limiting Gait Function Decreased Activity Tolerance Decreased Strength Pain Poor Balance Poor Safety Awareness PT-Balance Assessment Sitting Balance and Reactions Static Sitting Balance Ability Good Dynamic Sitting Balance Ability Good Standing Balance and Reactions Static Standing Balance Ability Fair Dynamic Standing Balance Ability Fair Device Used FWW M5 PT-IP Objective Assessments Start: 10/12/18 12:35 Freq: NEEDED Status: Active Protocol: Document 10/12/18 09:40 AB (Rec: 10/12/18 13:06 AB [id number]) Orientation Orientation/Cognition Level of Alertness Alert Orientation Name Age Birthday Month Date Year Day of Week Place Situation Safety Awareness Decreased Safety Awareness Memory Description Short Term Impaired Gross Range of Motion Lower Extremity ROM Assessment Within Functional Limits Strength Lower Extremity Strength Assessment Right Impaired Knee 4-/5 Coordination Assessment Gross Coordination Gross Coordination WNL Sensation Assessment Sensation Gross Sensation WNL Muscle Tone Muscle Tone WNL Yes M6 PT-IP Treatment Start: 10/12/18 12:35 Freq: NEEDED Status: Active Protocol: Document 10/12/18 09:40 AB (Rec: 10/12/18 13:06 AB [id number]) Physical Therapy Treatment Exercises Exercises Heel Slides Education Education Provided Precautions Weight Bearing Status Post-Op Packet Safety M7 PT-IP Assessment and Plan Start: 10/12/18 12:35 Freq: NEEDED Status: Active Protocol: Document 10/12/18 09:40 AB (Rec: 10/12/18 13:06 AB [id number]) PT Summary Assessment and Plan Potential Rehabilitation Potential Good Status of Condition at Evaluation Stable Summary Impairments Pain ROM Strength Balance Coordination Cognition Bed Mobility Transfers Gait Activity Tolerance Assessment Summary pt requiring SBA with mobility . pt plans to go home with spouse to assist her. pt may go home when medically stable. Goals Bed Mobility Goal Independent Transfer Goal Independent Gait Goal Independent Gait Distance 200 Days to Meet Goals 2 Frequency of Treatment Frequency Of Treatment Twice a Day Treatment Plan Physical Therapy Treatment Plan Bed Mobility Training Transfer Training Gait Training Therapeutic Exercise Balance Retraining Post Op Education Discharge Planning Hot or Cold Pack Neuromuscular Re-ed Coordination Retraining Manual Therapy Other Recommendations and Next Treatment ambulation Focus Recommendations To Nursing Amount of Assist Needed Standby Assistance Discharge Recommendations PT Discharge Recommendations Home with Assistance Outpatient PT
--- NOTE | 2018-10-12 10:01 | CM.IDA ---
Discharge Planning/Care Management CM Discharge Assessment Start: 10/12/18 09:36 Freq: Status: Active Protocol: Document 10/12/18 09:36 LUCHO (Rec: 10/12/18 09:55 LUCHO [id number]) Discharge Planning Assessment Assigned Political Worker QUINN Keys DPOA/Assigned Designee Name Sung (spouse) or Cecelia ( daughter) Contact Information Sung: [phone] Cecelia: Advance Directives? Yes Advance Directives on File No History Provided By Patient Family Member Medical Record Comment Not in last 30 days, but here in February 2018 for spinal surgery w/ Dr Begum. DC home w/ family at that time. Prior Living Arrangements House Household Members spouse Type of transporation used prior to Relies on Others admit Independent with ADL's Yes: FWW as needed Is patient alert and oriented? Yes Barriers to Discharge No Comment Home w/family assist, likely today. DC order in place, PT pending at this time. Following closely. Discharge Plan Home Transportation Arrangement Family Additional Comment Spouse and dtr/grand dtr Whiteboard Updated in Patient Room with Yes name and ext. # of Political Worker Review Status In Process
== END 2018-10-12 14:58 | disposition home or self-care (01) | DRG 470 ==
PROVIDERS: Admitting Provider Orthopaedic Surgery; PCP Physician Assistant; Visit Provider Orthopaedic Surgery
PROC: 0SR902Z Replacement of Right Hip Joint with Metal on Polyethylene Synthetic Substitute, Open Approach (ICD-10-PCS; CPT 27130; principal; 2018-10-11 12:00)
DX: M16.11 Unilateral primary osteoarthritis, right hip (principal); Z96.642 Presence of left artificial hip joint; Z87.891 Personal history of nicotine dependence
CPT/HCPCS: 36415; 73501; 73502; 76000; 85014; 85018; 97161; 97530; C1776; C9290; J0690; J1100; J2250; J2274; J2405; J2704; J3010; J3370

== ENCOUNTER 2018-10-22 09:06 | Emergency (ER) | payer MEDICARE, OTHER, SELFPAY ==
[2018-10-11 17:09] VITALS: BMI 24.2
[2018-10-22 09:21] VITALS: BP 146/73; PULSE 83; RESP 16; TEMP 37.4; O2SAT 99; BMI 24.2
[2018-10-22 09:50] LABS: Add Manual Diff / Slide Review NO; Basophils Absolute Auto 100 /uL (0-100); Basophils Percent Auto 0.5 % (0-2); Eosinophils Absolute Auto 100 /uL (0-450); Eosinophils Percent Auto 0.5 % (2-4); Hematocrit 33.7 % (36-46); Hemoglobin 11.3 g/dL (12.0-16.0); Lymphocytes Absolute Auto 700 /uL (1100-4500); Lymphocytes Percent Auto 5.4 % (25-40); Mean Corpuscular HGB Conc 33.4 % (30-36); Mean Corpuscular Hemoglobin 30.1 PG (26-34); Mean Corpuscular Volume 90.1 fL (80-100); Monocytes Absolute Auto 1200 /uL (0-900); Monocytes Percent Auto 8.9 % (3-14); Neutrophils Absolute Auto 11600 /uL (1500-7000); Neutrophils Percent Auto 84.7 % (50-75); Platelet Count 500 X10^3/uL (150-400); Red Blood Cell Count 3.74 X10^6/uL (4.0-5.2); White Blood Cell Count 13.6 X10^3/uL (4.5-11.0)
--- NOTE | 2018-10-22 09:54 | ED_ITS ---
HPI - GI Bleed General Chief complaint: GI Bleed Stated complaint: THINKS C DIFF, BLOOD IN STOOL Time Seen by Provider: 10/22/18 09:12 Source: patient Mode of arrival: ambulatory Limitations: no limitations History of Present Illness HPI Narrative: Patient is a 63-year-old feel the here for evaluation of diarrhea and blood in her stool. Patient does have a history of C diff. She states that it feels like her C diff. States it has been going on for the past couple days. She did recently have a right hip replacement. Is not currently on any antibiotics. Some nausea but no vomiting. Has not tried anything for symptoms prior to arrival. Related Data Home Medications Medication Instructions Recorded Confirmed alendronate 70 mg PO QWEEK 01/05/18 10/11/18 citalopram 40 mg PO BEDTIME 01/05/18 10/11/18 estradiol 1 mg PO QDAY 01/05/18 10/11/18 loratadine [Claritin] 10 mg PO BEDTIME 01/05/18 10/11/18 oxybutynin chloride 5 mg PO BEDTIME 01/05/18 10/11/18 sumatriptan succinate 100 mg PO Q2-4H PRN 01/05/18 10/11/18 calcium carbonate [Calcium 600] 600 mg PO BID 03/03/18 10/11/18 cholecalciferol (vitamin D3) 2,000 unit PO BEDTIME 03/03/18 10/11/18 [Vitamin D3] multivitamin 1 tab PO BEDTIME 03/03/18 10/11/18 meloxicam 15 mg PO BEDTIME 10/05/18 10/11/18 Previous Rx's Medication Instructions Recorded cyclobenzaprine 10 mg PO Q8HR PRN #30 tab 03/06/18 hydroxyzine pamoate 25 mg PO Q4HR PRN #30 cap 03/06/18 oxycodone 5 mg PO Q4-6H PRN #60 tab 03/06/18 aspirin 81 mg PO BID #0 tab 10/12/18 docusate sodium 100 mg PO BID #0 cap 10/12/18 vancomycin 125 mg PO QID 10 Days #40 cap 10/22/18 Allergies Allergy/AdvReac Type Severity Reaction Status Date / Time hydromorphone [From DILAUDID] Allergy Severe RASH, Verified 10/22/18 09:21 BLISTERS adhesive tape [ADHESIVE TAPE] Allergy Intermediate RASH Verified 10/22/18 09:21 PAPER/SILK TAPE OK latex [LATEX] Allergy Mild RASH Verified 10/22/18 09:21 hydrocodone [From VICODIN] AdvReac Severe NAUSEA, Verified 10/22/18 09:21 VOMTING Review of Systems Constitutional Denies fever(s) Cardiovascular Denies chest pain and Denies dyspnea Respiratory Denies dyspnea Gastrointestinal Gastrointestinal: Reports abdominal pain, Reports diarrhea, Reports nausea and Denies vomiting Comments: Blood in her stool Genitourinary Denies dysuria Musculoskeletal Comments: Right hip pain secondary to her right total hip replacement Integumentary/Breasts Denies rash Hematologic/Lymphatic Comments: Not currently on anticoagulation PFSH Medical History Chronic back pain (Acute) Depression (Acute) GERD (gastroesophageal reflux disease) (Acute) H/O: hysterectomy (Acute) Migraines (Acute) Osteoporosis (Acute) Seasonal allergies (Acute) Surgical History History of bunionectomy of left great toe (Acute) History of bunionectomy of right great toe (Acute ~2015) History of esophagogastroduodenoscopy (EGD) (Acute) History of laparotomy (Acute) History of lumbar spinal fusion (Acute 03/03/18) History of total left hip arthroplasty (Acute ~03/2016) Hx of cervical discectomy (Acute 09/02/16) Hx of umbilical hernia repair (Acute) Social History household members: spouse Smoking Status: Former smoker alcohol intake: current Social History household members: spouse Smoking Status: Former smoker alcohol intake: current Exam Initial Vital Signs Initial Vital Signs: Vital Signs Temperature 99.4 F 10/22/18 09:21 Pulse Rate 83 10/22/18 09:21 Respiratory Rate 16 10/22/18 09:21 Blood Pressure 146/73 H 10/22/18 09:21 Pulse Oximetry 99 10/22/18 09:21 Const General: cooperative, well developed, well groomed and No acute distress Orientation: alert, awake and oriented x3 HENMT Head: normal to inspection and normocephalic Resp Effort & Inspection: normal respiratory effort Auscultation: clear to auscultation bilaterally Cardio Rate: regular rate Rhythm: regular rhythm GI Inspection: non-distended Palpation: soft, No firm, No rigid and No tender Back/Spine/Pelvis Back: No CVA tenderness Skin Rashes: rash noted Other: Surgical incision right hip covered with bandage Neuro General: alert, awake and oriented x3 Extrem General: normal to inspection and capillary refill normal Psych Appearance: grossly normal and well kempt Course Orders Ordered: ED Orders 10/22/18 09:40 Complete Blood Count AUTO DIFF Stat Comprehensive Metabolic Panel Stat 10/22/18 10:05 Lactate (Lactic Acid) Stat 10/22/18 11:00 GI Panel (Film Array) Stat Discontinued Medications Sodium Chloride (Normal Saline 0.9%) 1,000 mls @ 1,000 mls/hr IV BOLUS ONE Stop: 10/22/18 10:36 Last Infusion: 10/22/18 12:19 Dose: 0 mls/hr Admin: 10/22/18 10:23 Dose: 1,000 mls/hr Sodium Chloride (Normal Saline 0.9%) 1,000 mls @ 1,000 mls/hr IV BOLUS ONE Stop: 10/22/18 10:55 Last Infusion: 10/22/18 13:59 Dose: 0 mls/hr Admin: 10/22/18 12:20 Dose: 1,000 mls/hr Ondansetron HCl (Zofran) 4 mg IV NOW ONE Stop: 10/22/18 09:38 Last Admin: 10/22/18 10:30 Dose: 4 mg Vancomycin HCl (Vancomycin) 125 mg PO NOW ONE Stop: 10/22/18 12:52 Last Admin: 10/22/18 13:00 Dose: 125 mg Vital Signs - 8 hr 10/22/18 11:22 10/22/18 12:55 Pulse Rate 83 80 Respiratory Rate 17 18 Blood Pressure [Left Arm] 132/76 131/76 Pulse Oximetry 100 97 MDM - GI Bleed Lab Data Attestation: I reviewed the patient's lab results. Result diagrams: 10/22/18 09:40 10/22/18 09:40 Lab Results 10/22/18 10/22/18 10/22/18 Range/Units 09:40 09:40 10:05 WBC 13.6 H (4.5-11.0) X10^3/uL RBC 3.74 L (4.0-5.2) X10^6/uL Hgb 11.3 L (12.0-16.0) g/dL Hct 33.7 L (36-46) % MCV 90.1 (80-100) fL MCH 30.1 (26-34) PG MCHC 33.4 (30-36) % RDW 14.0 (11.6-14.8) % Plt Count 500 H (150-400) X10^3/uL Neut % (Auto) 84.7 H (50-75) % Lymph % (Auto) 5.4 L (25-40) % [place] % (Auto) 8.9 (3-14) % Eos % (Auto) 0.5 L (2-4) % Baso % (Auto) 0.5 (0-2) % Neut # (Auto) 10893 H (7311-6153) /uL Lymph # (Auto) 700 L (3639-4546) /uL [place] # (Auto) 1200 H (0-900) /uL Eos # (Auto) 100 (0-450) /uL Baso # (Auto) 100 (0-100) /uL Sodium 134 L (137-145) mmol/L Potassium 4.0 (3.4-5.1) mmol/L Chloride 102 (98-107) mmol/L Carbon Dioxide 23 (22-32) mmol/L BUN 13 (7-17) mg/dL Creatinine 0.70 (0.52-1.04) mg/dL Estimated GFR > 60.0 (>60) mL/min BUN/Creatinine Ratio 18.6 (6-22) Glucose 118 H (80-110) mg/dL Lactate 1.0 (0.7-2.1) mmol/L Calcium 9.0 (8.4-10.2) mg/dL Total Bilirubin 0.6 (0.2-1.3) mg/dL AST 34 (14-36) IU/L ALT 33 (9-52) IU/L Alkaline Phosphatase 70 (38-126) U/L Total Protein 6.8 (6.3-8.2) g/dL Albumin 3.9 (3.5-5.0) g/dL Globulin 2.9 (1.7-4.1) g/dL Albumin/Globulin Ratio 1.3 (1.0-2.8) Stl C. cayetanensis PCR (Not Detect) Stool Rotavirus (PCR) (Not Detect) Stool Adenovirus (PCR) (Not Detect) Stool Astrovirus (PCR) (Not Detect) Stool Cryptosporidium PCR (Not Detect) Stl E.coli Shiga Tox PCR (Not Detect) St Sh/Enteroin Ecoli PCR (Not Detect) Stool E coli O157 PCR (Not Detect) Stl Enterotoxigenic E PCR (Not Detect) Stool EPEC (PCR) (Not Detect) Stl E. histolytica PCR (Not Detect) Stool Giardia Lamblia PCR (Not Detect) Stool Sapovirus (PCR) (Not Detect) Stl P. shigelloides PCR (Not Detect) St Y.enterocolitica PCR (Not Detect) Stool Vibrio (PCR) (Not Detect) Stl Vibrio cholerae PCR (Not Detect) Stl Enteroaggr Ecoli PCR (Not Detect) Stl Norovirus GI/GII PCR (Not Detect) Campylobacter (PCR) (Not Detect) C. difficile Tox (PCR) (Not Detect) Salmonella (PCR) (Not Detect) 10/22/18 Range/Units 11:00 WBC (4.5-11.0) X10^3/uL RBC (4.0-5.2) X10^6/uL Hgb (12.0-16.0) g/dL Hct (36-46) % MCV (80-100) fL MCH (26-34) PG MCHC (30-36) % RDW (11.6-14.8) % Plt Count (150-400) X10^3/uL Neut % (Auto) (50-75) % Lymph % (Auto) (25-40) % [place] % (Auto) (3-14) % Eos % (Auto) (2-4) % Baso % (Auto) (0-2) % Neut # (Auto) (0194-7988) /uL Lymph # (Auto) (0891-0371) /uL [place] # (Auto) (0-900) /uL Eos # (Auto) (0-450) /uL Baso # (Auto) (0-100) /uL Sodium (137-145) mmol/L Potassium (3.4-5.1) mmol/L Chloride (98-107) mmol/L Carbon Dioxide (22-32) mmol/L BUN (7-17) mg/dL Creatinine (0.52-1.04) mg/dL Estimated GFR (>60) mL/min BUN/Creatinine Ratio (6-22) Glucose (80-110) mg/dL Lactate (0.7-2.1) mmol/L Calcium (8.4-10.2) mg/dL Total Bilirubin (0.2-1.3) mg/dL AST (14-36) IU/L ALT (9-52) IU/L Alkaline Phosphatase (38-126) U/L Total Protein (6.3-8.2) g/dL Albumin (3.5-5.0) g/dL Globulin (1.7-4.1) g/dL Albumin/Globulin Ratio (1.0-2.8) Stl C. cayetanensis PCR Not detected (Not Detect) Stool Rotavirus (PCR) Not detected (Not Detect) Stool Adenovirus (PCR) Not detected (Not Detect) Stool Astrovirus (PCR) Not detected (Not Detect) Stool Cryptosporidium PCR Not detected (Not Detect) Stl E.coli Shiga Tox PCR Not detected (Not Detect) St Sh/Enteroin Ecoli PCR Not detected (Not Detect) Stool E coli O157 PCR Not detected (Not Detect) Stl Enterotoxigenic E PCR Not detected (Not Detect) Stool EPEC (PCR) Not detected (Not Detect) Stl E. histolytica PCR Not detected (Not Detect) Stool Giardia Lamblia PCR Not detected (Not Detect) Stool Sapovirus (PCR) Not detected (Not Detect) Stl P. shigelloides PCR Not detected (Not Detect) St Y.enterocolitica PCR Not detected (Not Detect) Stool Vibrio (PCR) Not detected (Not Detect) Stl Vibrio cholerae PCR Not detected (Not Detect) Stl Enteroaggr Ecoli PCR Not detected (Not Detect) Stl Norovirus GI/GII PCR Not detected (Not Detect) Campylobacter (PCR) Not detected (Not Detect) C. difficile Tox (PCR) Detected H (Not Detect) Salmonella (PCR) Not detected (Not Detect) Urine Dip Bedside Urine Glucose Negative Bedside Urine Bilirubin - Negative Bedside Urine Ketone - Negative Urine Specific [place] 1.005 Bedside Urine Occult Blood +/- Bedside Urine pH 8.0 Bedside Urine Protein - Negative Bedside Urine Urobilinogen - Negative Bedside Urine Nitrite - Negative Bedside Urine Leukocytes - Negative Esterase MDM Narrative Medical decision making narrative: Patient was able to give us a stool sample here in the emergency department which did show Clostridium difficile. Patient states that during her 1st treatment she was treated with metronidazole. Her white count is less than 15 and her creatinine is unremarkable which places her in the non serious infection. She was given a 1st dose of oral vancomycin here in the emergency department was sent home with a prescription for this. She is also given fluids. I discussed the case with Orthopedics who stated that as long as she was on the appropriate antibiotics that her recent right hip replacement was not a concern in this situation. Attempted to contact the individual on-call for the patient's primary doctor however we did not receive a call back. I feel that the patient does not need admitted to the hospital for antibiotics. I the patient contact her primary doctor tomorrow for a follow -up. Did discuss return precautions. They expressed understanding and agreement with plan. Discharge Plan Departure Patient Disposition: Home Clinical Impression: Clostridium difficile diarrhea Discharge Date/Time: 10/22/18 14:03 Interventions: ED Discharge Assessment Last Done: 10/22/18 14:02 Instructions: Clostridium difficile Infection Activity Restrictions/Additional Instructions: Take the antibiotics as directed. I do recommend that tomorrow you contact your primary doctor for a follow-up. Return to the emergency department for any worsening abdominal pain, fevers, inability to take her antibiotics or any other concerning symptoms. Prescriptions: New vancomycin 125 mg capsule 125 mg PO QID 10 Days Qty: 40 RF: 0 No Action sumatriptan succinate 100 mg Tablet 100 mg PO Q2-4H PRN (Reason: MIGRAINES) RF: 0 alendronate 70 mg Tablet 70 mg PO QWEEK RF: 0 citalopram 20 mg Tablet 40 mg PO BEDTIME RF: 0 estradiol 1 mg Tablet 1 mg PO QDAY RF: 0 oxybutynin chloride 5 mg Tablet 5 mg PO BEDTIME RF: 0 loratadine [Claritin] 10 mg Tablet 10 mg PO BEDTIME RF: 0 multivitamin Tablet 1 tab PO BEDTIME RF: 0 calcium carbonate [Calcium 600] 600 mg calcium (1,500 mg) Tablet 600 mg PO BID RF: 0 cholecalciferol (vitamin D3) [Vitamin D3] 1,000 unit Capsule 2,000 unit PO BEDTIME RF: 0 cyclobenzaprine 10 mg Tablet 10 mg PO Q8HR PRN (Reason: Spasms) Qty: 30 RF: 0 hydroxyzine pamoate 25 mg Capsule 25 mg PO Q4HR PRN (Reason: Nausea And Vomiting) Qty: 30 RF: 0 oxycodone 5 mg tablet 5 mg PO Q4-6H PRN (Reason: pain) Qty: 60 RF: 0 meloxicam 15 mg Tablet 15 mg PO BEDTIME RF: 0 aspirin 81 mg Tablet,Delayed Release (Dr/Ec) 81 mg PO BID Qty: 0 RF: 0 docusate sodium 100 mg Capsule 100 mg PO BID Qty: 0 RF: 0 Referrals: Cori Dorsey PA-C [Primary Care Provider] -
[2018-10-22 10:02] LABS: Alanine Aminotransferase 33 IU/L (9-52); Albumin 3.9 g/dL (3.5-5.0); Albumin Globulin Ratio 1.3 (1.0-2.8); Alkaline Phosphatase 70 U/L (38-126); Aspartate Aminotransferase 34 IU/L (14-36); BUN Creatinine Ratio 18.6 (6-22); Bilirubin Total 0.6 mg/dL (0.2-1.3); Blood Urea Nitrogen 13 mg/dL (7-17); Carbon Dioxide 23 mmol/L (22-32); Chloride 102 mmol/L (98-107); Estimated Glomerular Filt Rate > 60.0 mL/min (>60); Globulin 2.9 g/dL (1.7-4.1); Glucose 118 mg/dL (80-110); HEMOLYSIS < 15 (0-50); Sodium 134 mmol/L (137-145); Total Protein 6.8 g/dL (6.3-8.2)
[2018-10-22] MEDS: SODIUM CHLORIDE 0.9% 1,000 ML 1000 ML IV ×2 (10:23→12:20)
[2018-10-22] MEDS: ONDANSETRON 4 MG/2 ML INJ IV (10:30)
[2018-10-22 11:22] VITALS: BP 132/76; PULSE 83; RESP 17; O2SAT 100
[2018-10-22 12:33] LABS: Adenovirus F 40/41 Not Detected (Not Detect); Astrovirus Not Detected (Not Detect); Campylobacter Not Detected (Not Detect); Cryptosporidium Not Detected (Not Detect); Cyclospora cayetanensis Not Detected (Not Detect); Entamoeba histolytica Not Detected (Not Detect); Enteroaggregative E.coli Not Detected (Not Detect); Enteropathogenic E.coli Not Detected (Not Detect); Enterotoxigenic E.coli It/st Not Detected (Not Detect); Giardia lamblia Not Detected (Not Detect); Norovirus GI/GII Not Detected (Not Detect); Plesiomonsa shigelloides Not Detected (Not Detect); Rotavirus A Not Detected (Not Detect); Salmonella Not Detected (Not Detect); Sapovirus Not Detected (Not Detect); Shiga-like toxin-prod E.coli Not Detected (Not Detect); Shigella/Enteroinvasive E.coli Not Detected (Not Detect); Vibrio Not Detected (Not Detect); Vibrio cholerae Not Detected (Not Detect); Yersinia enterocolitica Not Detected (Not Detect)
[2018-10-22 12:35] LABS: Clostridium difficile toxin AB Detected (Not Detect)
[2018-10-22 12:55] VITALS: BP 131/76; PULSE 80; RESP 18; O2SAT 97
[2018-10-22] MEDS: VANCOMYCIN 125 MG CAPSULE PO (13:00)
== END 2018-10-22 14:03 | disposition home or self-care (01) ==
PROVIDERS: Emergency Provider Emergency Medicine; PCP Physician Assistant
DX: A04.72 Enterocolitis due to Clostridium difficile, not specified as recurrent (principal)
CPT/HCPCS: 36415; 36591; 80053; 81003; 83605; 85025; 87507; 96361; 96374; 99283; 99284; J2405

== ENCOUNTER → 2020-02-18 10:55 | Outpatient (CLI) | payer MEDICARE, OTHER, SELFPAY ==
[2018-10-11 17:09] VITALS: BMI 24.2
--- NOTE | 2020-02-18 | DI.RAD.S_ITS ---
PROCEDURE: XR CHEST 2V INDICATIONS: COUGH, SHORTNESS OF BREATH TECHNIQUE: 2 views of the chest were acquired. COMPARISON: [facility], , CHEST 2 VIEW, 11/16/2013, 11:38. FINDINGS: Surgical changes and devices: Lumbar spine fixation rods and screws incompletely visualized. Lungs and pleura: 9.6 cm masslike opacity involves the right upper lobe; otherwise lungs are clear. No pleural effusions or pneumothorax. Mediastinum: Mediastinal contours are normal. Heart size is normal. Bones and chest wall: No suspicious bony abnormalities. Soft tissues appear unremarkable. IMPRESSION: 9.6 cm masslike right upper lobe opacity suspicious for underlying neoplasm. Chest CT scan recommended for further assessment. Dictated by: Enrique Valenzuela [facility] Interpreted: Audie Mathis MD on 02/18/2020 at 11:57 Approved by: Audie Mathis M.D. on 02/18/2020 at 15:40
[2020-02-18 12:29] LABS: Add Manual Diff / Slide Review NO; Basophils Absolute Auto 100 /uL (0-100); Basophils Percent Auto 0.5 % (0-2); Eosinophils Absolute Auto 100 /uL (0-450); Eosinophils Percent Auto 0.9 % (2-4); Hematocrit 39.6 % (36-46); Hemoglobin 13.5 g/dL (12.0-16.0); Lymphocytes Absolute Auto 1300 /uL (1100-4500); Lymphocytes Percent Auto 11.1 % (25-40); Mean Corpuscular HGB Conc 34.2 % (30-36); Mean Corpuscular Hemoglobin 27.8 PG (26-34); Mean Corpuscular Volume 81.4 fL (80-100); Monocytes Absolute Auto 1100 /uL (0-900); Monocytes Percent Auto 8.9 % (3-14); Neutrophils Absolute Auto 9500 /uL (1500-7000); Neutrophils Percent Auto 78.6 % (50-75); Platelet Count 355 X10^3/uL (150-400); Red Blood Cell Count 4.87 X10^6/uL (4.0-5.2); White Blood Cell Count 12.1 X10^3/uL (4.5-11.0)
[2020-02-18 12:43] LABS: Chloride 99 mmol/L (98-107); Potassium 3.8 mmol/L (3.4-5.1); Sodium 136 mmol/L (137-145)
[2020-02-18 12:44] LABS: Alanine Aminotransferase 25 IU/L (<35); Albumin 4.1 g/dL (3.5-5.0); Albumin Globulin Ratio 1.1 (1.0-2.8); Alkaline Phosphatase 116 U/L (38-126); Aspartate Aminotransferase 39 IU/L (14-36); BUN Creatinine Ratio 24.2 (6-22); Bilirubin Total 0.7 mg/dL (0.2-1.3); Blood Urea Nitrogen 15 mg/dL (7-17); Calcium 9.5 mg/dL (8.4-10.2); Carbon Dioxide 24 mmol/L (22-32); Estimated Glomerular Filt Rate > 60.0 mL/min (>60); Globulin 3.8 g/dL (1.7-4.1); Glucose 120 mg/dL (80-110); HEMOLYSIS < 15 (0-50); Total Protein 7.9 g/dL (6.3-8.2)
[2020-02-18 12:50] LABS: NT-proBNP (BNP-Adult 18+) 266 pg/mL (<125)
[2020-02-19 13:13] LABS: COVID19 Sendout Not Detected (Not Detect)
== END ==
PROVIDERS: Registered Nurse; PCP Student in an Organized Health Care Education/Training Program; Referring Provider Student in an Organized Health Care Education/Training Program; Visit Provider Student in an Organized Health Care Education/Training Program
DX: R06.00 Dyspnea, unspecified (principal); R05 Cough; R53.83 Other fatigue; R07.89 Other chest pain; R06.02 Shortness of breath
CPT/HCPCS: 36415; 71046; 80053; 83880; 85025; 87635

== ENCOUNTER → 2020-02-20 09:10 | Outpatient (CLI) | payer MEDICARE, OTHER, SELFPAY ==
[2018-10-11 17:09] VITALS: BMI 24.2
--- NOTE | 2020-02-20 | DI.CT.S_ITS ---
PROCEDURE: CT CHEST W CON INDICATIONS: Pneumonia TECHNIQUE: After the administration of intravenous contrast, 5 mm thick sections acquired from the pulmonary apices to the posterior costophrenic angles. 1 mm axial lung, 5 mm thick coronal and sagittal reformats and 7 mm axial MIP were acquired. For radiation dose reduction, the following was used: automated exposure control, adjustment of mA and/or kV according to patient size. COMPARISON: Merged With [facility], CR, XR CHEST 2V, 02/18/2020, 10:57. FINDINGS: Image quality: Excellent. Lungs and pleura: No acute air space opacities suggestive of pneumonia are found. There is a large mass lesion at the right upper lobe area measuring up to 6.2 cm AP, 7.1 cm transverse and 5.9 cm craniocaudad, solid. This corresponds to the area of mass seen on plain film 02/18/20. This extends to the right hilum, with mild adenopathy seen on series 2 image 28 at the hilar vessel margins. No pleural effusions or pneumothorax. Central and peripheral airways are patent and normal in caliber. Within the left upper lobe posterolaterally is a peripheral pleural based focus of lung disease, subsolid, best seen centered on series 3 image 66 and more inferiorly a smaller area of subsolid airspace disease focally is present within the substance of the left upper lobe (series 3 image 92). These measure 2.2 and 0.9 cm respectively. Mediastinum: Heart size is normal. No pericardial effusion. No mediastinal or hilar adenopathy by size criteria. Thoracic aorta and central pulmonary arteries are normal in size. Esophagus is normal in caliber. No hiatal hernia. Bones and chest wall: No suspicious bony lesions. No vertebral body compression fractures. No axillary or supraclavicular adenopathy by size criteria. Thyroid gland appears normal where well seen. Abdomen: Visualized upper abdominal solid organs appear normal. Upper abdominal bowel loops are normal in caliber. IMPRESSION: Large malignant appearing mass centered within the right upper lobe extending contiguously to the lateral border of the right hilum where mild adenopathy is seen adjacent to the upper third hilar vessels. No mediastinal adenopathy is found, no distant metastatic disease is seen. Within the peripheral left upper lobe postero-laterally, and at the left upper lobe lung parenchyma slightly more inferiorly 2 areas of subsolid radiodensity are present of indeterminate etiology and clinical significance but potentially a manifestation of low-grade neoplasm independent from the dominant mass on the right. Dictated by: Conor Ahn M.D. on 02/20/2020 at 9:53 Approved by: Conor Ahn M.D. on 02/20/2020 at 10:25
== END ==
PROVIDERS: PCP Student in an Organized Health Care Education/Training Program; Referring Provider Student in an Organized Health Care Education/Training Program; Visit Provider Student in an Organized Health Care Education/Training Program
DX: J18.9 Pneumonia, unspecified organism (principal); R91.8 Other nonspecific abnormal finding of lung field
CPT/HCPCS: 71260; Q9967